=== PATIENT | female | born 1945 | race Caucasian/White ===

== ENCOUNTER 2022-08-21 10:23 | Emergency (ER) | payer MEDICARE, BC, SELFPAY ==
[2022-08-21] VITALS (16 sets, daily range): BP systolic 149–189; BP diastolic 81–102; PULSE 65–90; RESP 18; TEMP 36.5; O2SAT 87–93; BMI 23.0
--- NOTE | 2022-08-21 10:39 | ED.ABDPAIN ---
HPI - Abdominal Pain General Time Seen by Provider: 10:39 Date Seen: 08/21/22 Chief Complaint: Abdominal Pain Stated Complaint: Abdominal pain Time Seen by Provider: 08/21/22 10:39 Source: patient, RN notes reviewed and old records reviewed Mode of arrival: ambulatory Limitations: no limitations History of Present Illness HPI narrative: Patient is a 77-year-old female coming to the ER of her own accord with complaint of lower abdominal pain. She states she feels like her lower abdomen it is hard. Symptoms started on Sunday. She has had no nausea or vomiting, is having normal bowel movements. No urinary symptoms. She has never had any abdominal surgery. No fevers or chills. She does admit to decreased appetite. She points the pain in her lower abdomen but seems like it does move or radiate towards the upper abdomen. She is not having any diarrhea per report, do see she has a history of collagenous colitis in her chart. MD elicited complaint: abdominal pain Related Data Hx Last Menstrual Period: NA Home Medications Medication Instructions Recorded Confirmed levothyroxine 50 mcg tablet 50 mcg PO 04/06/22 04/10/22 Allergies Allergy/AdvReac Type Severity Reaction Status Date / Time Sulfa (Sulfonamide Allergy Severe Facial Verified 08/21/22 12:09 Antibiotics) swelling latex Allergy Verified 08/21/22 12:09 Review of Systems Status of ROS Reports: 10 or more systems reviewed and unremarkable except as noted in History and below [facility] Surgical History (Updated 04/10/22 @ 16:22 by Sahara Morgan MD) History of cataract surgery ?Z98.49 - Cataract extraction status, unspecified eye (ICD-10) Social History Smoking Status: Never smoker Do you use any of these nicotine containing products: None Second hand tobacco smoke exposure: No How often do you have a drink containing alcohol: never How often do you have six or more drinks on one occasion: Never AUDIT-C Alcohol total score: 0 Non-prescribed substance use: denies use service: No Exam Const: Vital Signs, click to edit/add: Vital Signs - 24 hr 08/21/22 10:34 Temperature 97.7 F Pulse Rate [Right Pulse Oximeter] 90 Respiratory Rate 18 Blood Pressure [Ri ght Upper Arm] 189/102 H Pulse Oximetry 92 Oxygen Delivery Me thod Room Air Documenting provider has reviewed patient's vital signs: yes Common normals: no apparent distress, oriented x3, no limitations, healthy appearing and alert General appearance: cooperative, comfortable, well kempt and well developed Nutritional appearance: thin HENMT: Common normals: normocephalic, head/scalp atraumatic, hearing grossly normal bilaterally, external nose normal, moist oral mucous membranes and oropharynx normal Head and scalp: normocephalic and atraumatic Nose: external nose normal Eye: Common normals: PERRL, EOMs intact bilaterally, conjunctivae normal and no scleral icterus Conjunctiva: conjunctiva(e) normal Pupil: PERRL Neck & C-Spine: Common normals: full ROM, no lymphadenopathy, supple and no meningeal signs Resp: Common normals: normal respiratory effort, no retractions, no use of accessory muscles and clear to auscultation bilaterally Auscultation: clear to auscultation bilaterally Cardio: Common normals: regular rate, regular rhythm, S1 normal heart sound, S2 normal heart sound, no gallops, no clicks and no murmurs Rate: regular rate Rhythm: regular rhythm Heart sounds: S1 normal and S2 normal GI: Other: Overall abdomen does not look distended but patient feels like it is. Bowel sounds are present. I do not feel any organomegaly. She is tender suprapubic area but no definitive mass. Extremity: Common normals: normal to inspection, full ROM and no pedal edema Neuro: Common normals: oriented x3 Sensorium/orientation: alert Meningeal signs: no meningeal signs Speech: speech normal Gait (neuro): normal gait Psych: Appearance: well kempt Course Course Hospital Course: Given patient's symptoms, age, do feel we need to proceed with CT imaging. We will do a full complement of labs including urinalysis. She declines any need for pain management at this time. Reevaluation(s) Reevaluation #1: Reviewed with patient her CT findings. She has mild cecal diverticulitis. We will give an initial dose of Unasyn 3 g IV. Sent in prescription for oral antibiotics. We discussed low-fiber/low residue diet initially. When she has resolve, can resume high-fiber diet. She has a follow-up with her primary care next week which should be perfect timing for ED follow-up. Time: 14:02 Vital Signs Vital signs: Initial Vital Signs Temperature 97.7 F 08/21/22 10:34 Temperature Source Temporal Artery Scan 08/21/22 10:34 Pulse Rate 90 08/21/22 10:34 Respiratory Rate 18 08/21/22 10:34 Blood Pressure 189/102 H 08/21/22 10:34 Blood Pressure Mean 131 08/21/22 10:34 Blood Pressure Position Sitting 08/21/22 10:34 Pulse Oximetry 92 08/21/22 10:34 Oxygen Delivery Method Room Air 08/21/22 10:34 Vital Signs Temperature 97.7 F 08/21/22 10:34 Pulse Rate 90 08/21/22 10:34 Respiratory Rate 18 08/21/22 10:34 Blood Pressure 189/102 H 08/21/22 10:34 Pulse Oximetry 92 08/21/22 10:34 Oxygen Delivery Method Room Air 08/21/22 10:34 Temperature 97.7 F 08/21/22 10:34 Pulse Rate 90 08/21/22 10:34 Respiratory Rate 18 08/21/22 10:34 Blood Pressure 189/102 H 08/21/22 10:34 Pulse Oximetry 92 08/21/22 10:34 Oxygen Delivery Method Room Air 08/21/22 10:34 MDM - Abdominal Pain Lab Data Attestation: I reviewed the patient's lab results. Labs: Lab Results 08/21/22 08/21/22 08/21/22 Range/Units 10:47 11:00 11:10 WBC 8.08 (4.50-11.00) K/uL RBC 4.29 (4.00-5.20) m/uL Hgb 12.2 (12.0-16.0) gm/dL Hct 37.1 (33.0-51.0) % MCV 87 (80-100) fL MCH 28 (26-34) pg MCHC 33 (32-36) gm/dL RDW Coeff of Yan 12.9 (11.5-15.5) % Plt Count 162 (140-440) K/uL Neut % (Auto) 75.0 H (42.0-72.0) % Lymph % (Auto) 15.1 L (20-44) % [place] % (Auto) 8.8 (0.0-11.0) % Eos % (Auto) 0.6 (0.0-7.0) % Baso % (Auto) 0.4 (0.0-3.0) % Neut # (Auto) 6.10 (1.7-7.0) K/uL Lymph # (Auto) 1.20 (0.90-2.90) K/uL [place] # (Auto) 0.70 (0.00-0.90) K/UL Eos # (Auto) 0.05 (0.00-0.50) K/uL Baso # (Auto) 0.03 (0.00-0.30) K/uL Sodium 136 (135-149) mmol/L Potassium 3.8 (3.6-5.1) mmol/L Chloride 102 (96-114) mmol/L Carbon Dioxide 27 (20-32) mmol/L BUN 12 (7-30) mg/dL Creatinine 0.8 (0.5-1.5) mg/dL Estimated Creat Clear 38.35 Estimated GFR 75 ml/min Glucose 94 (60-115) mg/dL Lactate 0.8 (0.5-1.9) mmol/L Calcium 9.0 (8.4-10.6) mg/dL Total Bilirubin 0.8 (0.1-1.5) mg/dL Direct Bilirubin 0.2 (0.0-0.5) mg/dL AST 30 (12-35) U/L ALT 23 (4-35) U/L Alkaline Phosphatase 85 (40-150) U/L C-Reactive Protein 3.2 H (0.5-1.0) mg/dL Total Protein 8.0 (6.0-8.3) g/dL Albumin 4.3 (3.3-5.0) g/dL Lipase 220 (23-300) U/L Urine Color Yellow (Yellow) Urine Appearance Clear (Clear) Urine pH 6.0 (5.0-8.5) Ur Specific [place] <= 1.005 (1.000-1.030) Urine Protein Negative (Negative) Urine Glucose (UA) Negative (Negative) Urine Ketones Negative (Negative) Urine Blood Trace-intact A (Negative) Urine Nitrite Negative (Negative) Urine Bilirubin Negative (Negative) Urine Urobilinogen 0.2 (0.2-1.0) Ur Leukocyte Esterase 1+ A (Negative) Urine RBC 0-2 (0-2) Urine WBC 0-2 (0-5) Ur Squamous Epith Cells None (None-Few) Urine Bacteria None (None) POC Creatinine 0.9 (0.6-1.3) mg/dl Imaging Data CT scan - abdomen: Attestation: I have reviewed the pertinent imaging results. Radiologist's impression: Patient: CHELE LAGOS Facility:?[facility] Patient ID:?[id number] Site Patient ID:?[id number]. Site :?[id number] Study:?CT Abdomen/Pelvis 64CC ISOVUE 370-08/21/2022 12:11:56 PM Ordering Physician:Valerie Christopher Final Report: INDICATION: Abdominal pain and bloating. Decreased appetite 64. TECHNIQUE: CT abdomen and pelvis acquired with 100 cc Isovue 370 IV contrast. COMPARISON: None. FINDINGS: Lower chest: Unremarkable. Liver: Unremarkable. Normal in size and attenuation. No suspicious masses. Gallbladder and bile ducts: Unremarkable. No stones or inflammation. No biliary dilatation. Pancreas: Unremarkable. No mass or inflammation. Spleen: Unremarkable. Normal in size. No masses. Adrenal glands: Unremarkable. No nodules. Kidneys: Unremarkable. No suspicious masses, stones, or hydronephrosis. GI tract: Mild inflammation of a broad diverticulum in the cecum visualized on series 2, image 76. Remainder of the GI tract is unremarkable. Normal appendix. Vasculature: Abdominal aorta is normal in caliber. Mesenteric arteries are patent. Lymph nodes: No lymphadenopathy. Peritoneum/Abdominal Wall: Unremarkable. No sign of mass or infiltration. No free air or significant free fluid. Pelvis: Small calcified uterine fibroids. No other significant findings. Bones: Unremarkable for age. IMPRESSION: 1. Mild acute diverticulitis involving the diverticulum in the cecum. 2. No other acute or specific finding to explain abdominal pain. 3. No other significant findings. Please note that all CT scans at this facility use dose modulation, iterative reconstruction, and/or weight-based dosing when appropriate to reduce radiation dose to as low as reasonably achievable. Dictated by Christiano Maradiaga MD @ 08/21/2022 1:27:48 PM (Electronic Signature) Critical Care Time Critical Care Time Critical Care Time: No Discharge Plan Discharge Clinical Impression: Cecal diverticulitis Patient Disposition: Home, Self-Care Condition: Stable Instructions: Diverticulitis (ED), Diverticulitis Diet (ED) Additional Instructions: Start oral antibiotic tonight and take as prescribed. Need to drink adequate fluids, can follow handout for recommendations for solid foods through this episode. Keep your scheduled clinic follow-up next week. In the meantime, should you develop increasing abdominal pain, have development of fever or vomiting with this, do need to return to the ER for further evaluation. Can talk to primary care provider next week about making sure colonoscopy is up-to-date and that a new 1 is not recommended or needed. Activity Level: Activity as Tolerated Prescriptions: No Action levothyroxine 50 mcg tablet 50 mcg PO Patient Comments: TAKE ONE TABLET BY MOUTH ONE TIME DAILY Follow Up/Referrals: Sahara Morgan MD [Primary Care Provider] - Stand Alone Forms: [employer] Info Instructions
--- NOTE | 2022-08-21 10:46 | CRLHL7_ITS ---
For Patients: As a result of the Century Cures Act, medical imaging exams and procedure reports are released immediately into your electronic medical record. You may view this report before your referring provider. If you have questions, please contact your health care provider. INDICATION: Abdominal pain and bloating. Decreased appetite 64. TECHNIQUE: CT abdomen and pelvis acquired with 100 cc Isovue 370 IV contrast. COMPARISON: None. FINDINGS: Lower chest: Unremarkable. Liver: Unremarkable. Normal in size and attenuation. No suspicious masses. Gallbladder and bile ducts: Unremarkable. No stones or inflammation. No biliary dilatation. Pancreas: Unremarkable. No mass or inflammation. Spleen: Unremarkable. Normal in size. No masses. Adrenal glands: Unremarkable. No nodules. Kidneys: Unremarkable. No suspicious masses, stones, or hydronephrosis. GI tract: Mild inflammation of a broad diverticulum in the cecum visualized on series 2, image 76. Remainder of the GI tract is unremarkable. Normal appendix. Vasculature: Abdominal aorta is normal in caliber. Mesenteric arteries are patent. Lymph nodes: No lymphadenopathy. Peritoneum/Abdominal Wall: Unremarkable. No sign of mass or infiltration. No free air or significant free fluid. Pelvis: Small calcified uterine fibroids. No other significant findings. Bones: Unremarkable for age. IMPRESSION: 1. Mild acute diverticulitis involving the diverticulum in the cecum. 2. No other acute or specific finding to explain abdominal pain. 3. No other significant findings. Please note that all CT scans at this facility use dose modulation, iterative reconstruction, and/or weight-based dosing when appropriate to reduce radiation dose to as low as reasonably achievable. Dictated by Christiano Maradiaga MD @ 08/21/2022 1:27:48 PM (Electronically Signed)
[2022-08-21 11:08] LABS: Lactate* 0.8 mmol/L (0.5-1.9)
[2022-08-21 11:13] LABS: Basophils Absolute Auto 0.03 K/uL (0.00-0.30); Basophils Percent Auto 0.4 % (0.0-3.0); Eosinophils Absolute Auto 0.05 K/uL (0.00-0.50); Eosinophils Percent Auto 0.6 % (0.0-7.0); Hematocrit 37.1 % (33.0-51.0); Hemoglobin* 12.2 gm/dL (12.0-16.0); Immature Granulocytes Abs Auto 0.01 K/uL (0.00-0.30); Immature Granulocytes Pct Auto 0.1 %; Lymphocytes Percent Auto 15.1 % (20-44); Mean Corpuscular HGB Conc 33 gm/dL (32-36); Mean Corpuscular Hemoglobin 28 pg (26-34); Mean Corpuscular Volume 87 fL (80-100); Monocytes Percent Auto 8.8 % (0.0-11.0); Platelet Count* 162 K/uL (140-440); RDW Coefficient of Variation % 12.9 % (11.5-15.5); Red Blood Count 4.29 m/uL (4.00-5.20); White Blood Count* 8.08 K/uL (4.50-11.00)
[2022-08-21 11:17] LABS: Slide Review Reflex No
[2022-08-21 11:23] LABS: Appearance Urine Clear (Clear); Bilirubin Urine Negative (Negative); Blood Urine Trace-intact (Negative); Color Urine Yellow (Yellow); Glucose Urine Negative (Negative); Ketones Urine Negative (Negative); Leukocyte Esterase Urine 1+ (Negative); Nitrite Urine Negative (Negative); Protein Urine Negative (Negative); Specific Gravity Urine <= 1.005 (1.000-1.030); Urobilinogen Urine 0.2 (0.2-1.0)
[2022-08-21 11:24] LABS: Creatinine, Point-of-Care* 0.9 mg/dl (0.6-1.3)
[2022-08-21 11:34] LABS: Chloride* 102 mmol/L (96-114)
[2022-08-21 11:35] LABS: Albumin* 4.3 g/dL (3.3-5.0); Potassium* 3.8 mmol/L (3.6-5.1); Sodium* 136 mmol/L (135-149)
[2022-08-21 11:37] LABS: Creatinine* 0.8 mg/dL (0.5-1.5); Est. Creatinine Clearance* 38.35; Estimated Glomerular Filt Rate 75 ml/min
[2022-08-21 11:38] LABS: Alanine Aminotransferase* 23 U/L (4-35); Alkaline Phosphatase* 85 U/L (40-150); Aspartate Amino Transferase* 30 U/L (12-35); Bilirubin Direct* 0.2 mg/dL (0.0-0.5); Bilirubin Total* 0.8 mg/dL (0.1-1.5); Blood Urea Nitrogen* 12 mg/dL (7-30); Carbon Dioxide* 27 mmol/L (20-32); Glucose* 94 mg/dL (60-115); Lipase* 220 U/L (23-300)
[2022-08-21 11:45] LABS: RBC Urine 0-2 (0-2); WBC Urine 0-2 (0-5)
[2022-08-21 11:45] LABS: C Reactive Protein* 3.2 mg/dL (0.5-1.0)
[2022-08-21] MEDS: AMPICILLIN/SULBACTAM 3 GM in 0.9 % SODIUM CHLORIDE Mini-bag 100 ML IVPB (14:09)
== END 2022-08-21 14:47 | disposition home or self-care (01) ==
PROVIDERS: Emergency Provider Family Medicine; PCP Internal Medicine
DX: K57.32 Diverticulitis of large intestine without perforation or abscess without bleeding (principal)
CPT/HCPCS: 36415; 74177; 80053; 81001; 82248; 82565; 83605; 83690; 85025; 86140; 96365; 99284; J0295; Q9967

== ENCOUNTER 2022-08-28 07:35 | Outpatient (CLI) | payer MEDICARE, BC, SELFPAY | END 2022-08-28 07:36 | disposition home or self-care (01) | LOC: NFLDREF 22:11 | PROVIDERS: PCP Internal Medicine; Referring Provider Internal Medicine; Visit Provider Internal Medicine | DX: E03.9 Hypothyroidism, unspecified (principal) | CPT/HCPCS: 84443 ==

== ENCOUNTER 2022-11-03 15:18 | Observation (INO) | payer MEDICARE, BC, SELFPAY ==
[2022-11-03] VITALS (14 sets, daily range): BP systolic 141–196; BP diastolic 78–107; PULSE 66–75; RESP 18–24; TEMP 36.9; O2SAT 91–99; BMI 23.0; BMI 24.0
--- NOTE | 2022-11-03 15:51 | ED.GENADULT ---
HPI - General Adult General Time Seen by Provider: 15:51 Date Seen: 11/03/22 Chief complaint: High Blood Pressure Stated complaint: Dizzy Heart doesn't feel right Time Seen by Provider: 11/03/22 15:41 Source: patient and RN notes reviewed Mode of arrival: ambulatory Limitations: no limitations History of Present Illness HPI narrative: Talia is a very pleasant 77-year-old female coming in not feeling right. She notes her blood pressure is quite high, states usually runs 130s. She denies any headache, denies any vertigo symptoms but does feel imbalance. She states she had vertigo before in the past and it is not spinning like that but she feels imbalanced. She feels like she has to be careful walking now. This started today maybe 9-10 a.m.. She denies any visual changes, double vision or blurry vision. No headache. She did get her shingles shot at the pharmacy 2 days ago, had chills for couple days with that. She has felt off since that. She has not noticed any focal motor weakness. Denies any speech problems, no numbness tingling. She states she knows how to check for stroke symptoms and she has not had any of those. She wonders if it could be her heart. She has seen me the last 2 times she has been in the ER, I believe this makes her feel more anxious as she states she never comes to the ER. I try to reassure her that I really do feel that she should be here for evaluation, she was in for laceration and a cecal diverticulitis which are certainly things we would anticipate her to come to the ER for. The cecal diverticulitis was in August. She denies any abdominal symptoms at this time. No respiratory symptoms. She wonders maybe if she is coming down with COVID. I did state that we could test her for this. Related Data Home Medications Medication Instructions Recorded Confirmed multivitamin (Daily Multi-Vitamin 1 tab PO QAM 08/31/22 10/10/22 tablet) acetaminophen 500 mg capsule 500 mg PO Q6H PRN 10/10/22 10/10/22 ascorbic acid (vitamin C) 500 mg 500 mg PO DAILY PRN 10/10/22 10/10/22 tablet cholecalciferol (vitamin D3) 25 25 mcg PO QDAY PRN 10/10/22 10/10/22 mcg (1,000 unit) capsule ibuprofen 200 mg capsule 200 mg PO Q6H PRN 10/10/22 10/10/22 Previous Rx's Medication Instructions Recorded levothyroxine 50 mcg tablet 50 mcg PO QDAY #90 tabs 09/04/22 Allergies Allergy/AdvReac Type Severity Reaction Status Date / Time Sulfa (Sulfonamide Allergy Severe Facial Verified 11/03/22 15:28 Antibiotics) swelling latex Allergy Verified 11/03/22 15:28 Review of Systems Status of ROS: Reports: 6 or more systems reviewed and unremarkable except as noted in History and below [facility] Medical History (Updated 11/03/22 @ 18:51 by Kandace Robin MD) Family history of colon cancer ?Z80.0 - Family history of malignant neoplasm of digestive organs (ICD-10) Collagenous colitis ?K52.831 - Collagenous colitis (ICD-10) Hypothyroidism ?E03.9 - Hypothyroidism, unspecified (ICD-10) History of diverticulitis ?Z87.19 - Personal history of other diseases of the digestive system (ICD-10) Surgical History History of cataract surgery ?Z98.49 - Cataract extraction status, unspecified eye (ICD-10) Family History (Updated 11/03/22 @ 18:51 by Kandace Robin MD) Sister Colon cancer Mother Pancreatic cancer Social History Narrative: Health care directive on file- Health Care Directive completed on 09/04/2016. Scanned on 09/07/2016. Reviewed on 12/18/2019. What is your current living situation?: I presently have a place to live Problems where you live: no known problems Problems where you live details: none In the past 12 months, utilities in danger of being shut off: no In the past 12 mos, have been you worried that your food would run out before you had money to buy more?: never true In the past 12 mos, the food you bought just didn't last and you didn't have money to buy more?: never true Highest level of school completed/degree received: Master's degree Smoking Status: Never smoker Do you use any of these nicotine containing products: None Second hand tobacco smoke exposure: No How often do you have a drink containing alcohol: never How often do you have six or more drinks on one occasion: Never AUDIT-C Alcohol total score: 0 Non-prescribed substance use: denies use Caffeine: Yes (1 cup a day) How often does anyone, including family, friends and others, physically hurt you: never How often does anyone, including family, friends and others, insult or talk down to you: never How often does anyone, including family, friends and others, threaten you with harm: never How often does anyone, including family, friends and others, scream or curse at you: never Little interest or pleasure in doing things: not at all Feeling down, depressed, or hopeless: not at all service: No Exam Const: Vital Signs, click to edit/add: Vital Signs - 24 hr 11/03/22 15:25 11/03/22 15:52 11/03/22 15:53 Temperature 98.5 F Pulse Rate 69 66 Pulse Rate [Right Pulse Oximeter] 73 Respiratory Rate 18 Blood Pressure 179/92 H Blood Pressure [Ri ght Upper Arm] 196/92 H Pulse Oximetry 99 97 96 Oxygen Delivery Me thod Room Air 11/03/22 16:00 11/03/22 16:02 11/03/22 16:03 Temperature Pulse Rate 73 75 74 Pulse Rate [Right Pulse Oximeter] Respiratory Rate Blood Pressure 185/107 H Blood Pressure [Ri ght Upper Arm] Pulse Oximetry 97 97 97 Oxygen Delivery Me thod 11/03/22 16:30 11/03/22 16:31 11/03/22 16:32 Temperature Pulse Rate 72 68 67 Pulse Rate [Right Pulse Oximeter] Respiratory Rate Blood Pressure 172/88 H Blood Pressure [Ri ght Upper Arm] Pulse Oximetry 93 96 93 Oxygen Delivery Me thod 11/03/22 17:30 11/03/22 17:31 Temperature Pulse Rate 71 67 Pulse Rate [Right Pulse Oximeter] Respiratory Rate Blood Pressure 180/78 H Blood Pressure [Ri ght Upper Arm] Pulse Oximetry 91 92 Oxygen Delivery Me thod Documenting provider has reviewed patient's vital signs: yes Common normals: no apparent distress, average body habitus, oriented x3, no limitations, healthy appearing, alert and well nourished General appearance: cooperative, comfortable, well kempt, well developed and anxious HENMT: Common normals: normocephalic, head/scalp atraumatic, hearing grossly normal bilaterally, external ears normal, external nose normal, nasal mucous membranes and turbinates normal, moist oral mucous membranes, oropharynx normal, dentition normal and gingiva normal Head and scalp: normocephalic and atraumatic Face and sinus: normal facial exam Nose: external nose normal and nasal mucous membranes and turbinates normal External ear: external ears normal Eye: Common normals: PERRL, EOMs intact bilaterally, conjunctivae normal and no scleral icterus Conjunctiva: conjunctiva(e) normal Pupil: PERRL Neck & C-Spine: Common normals: full ROM, no lymphadenopathy, supple, no meningeal signs, no JVD and thyroid normal Thyroid: thyroid normal Resp: Common normals: normal respiratory effort, no retractions, no use of accessory muscles and clear to auscultation bilaterally Effort & inspection: able to speak in complete sentences Auscultation: clear to auscultation bilaterally Other: Sits up easily on her own to the edge of the bed without any difficulty, no truncal sway noted. Cardio: Common normals: no JVD, regular rate, regular rhythm, S1 normal heart sound, S2 normal heart sound, no gallops, no clicks and no murmurs Rate: regular rate Rhythm: regular rhythm Heart sounds: S1 normal and S2 normal GI: Common normals: Normal to inspection, nondistended, normoactive bowel sounds present, soft to palpation, non-tender, no hepatosplenomegaly and no masses Palpation: soft and no hepatosplenomegaly Extremity: Common normals: no calf tenderness and no pedal edema Neuro: [place] Coma Scale: document GCS findings [place] coma scale eye opening: Spontaneous (4) Maura coma scale verbal response: Orientated (5) [place] coma scale motor response: Obey commands (6) [place] coma scale total score: 15 Common normals: oriented x3, CN's II-XII intact bilaterally, moves all extremities, no focal motor deficits and no sensory deficits noted Sensorium/orientation: alert Meningeal signs: no meningeal signs Speech: speech normal Motor exam: strength 5/5 throughout, no pronator drift, no tremor noted, no asterixis, no fasciculations and muscle tone normal throughout Psych: Appearance: well kempt Skin: Common normals: no rashes or lesions noted General skin exam: no rashes or lesions noted Course Course Hospital Course: Patient is quite hypertensive, complaint sense of gait instability or unsteadiness, not true vertigo or dizziness. This certainly could be small vascular disease distribution type CVA. Have discussed with patient that I think we should just proceed with an MRI of her head. Of plain noncontrast head CT is not likely to show anything. Will have her on cardiac monitoring and pulse oximetry. Did review with her that we would look at her heart for arrhythmia, ischemic disease. Will do a full complement of labs. Reevaluation(s) Time of Reevaluation #1: 17:36 Reevaluation #1: Have reviewed with patient the hyponatremia. We are still waiting her MRI result of her brain. We will be getting a two view chest x-ray just to see if there is anything within the chest that might cause the hyponatremia. Have discussed with her that she needs hospitalization. Have already reviewed the case with the hospitalist Dr. Robin who accepts care. She will be getting low-dose IV fluid normal saline 75 mils per hour. Vital Signs Vital signs: Initial Vital Signs Temperature 98.5 F 11/03/22 15:25 Temperature Source Oral 11/03/22 15:25 Pulse Rate 73 11/03/22 15:25 Pulse Rhythm Regular 11/03/22 15:25 Pulse Strength 3+ Normal 11/03/22 15:25 Respiratory Rate 18 11/03/22 15:25 Blood Pressure 196/92 H 11/03/22 15:25 Blood Pressure Mean 126 H 11/03/22 15:25 Blood Pressure Position Sitting 11/03/22 15:25 Pulse Oximetry 99 11/03/22 15:25 Oxygen Delivery Method Room Air 11/03/22 15:25 Vital Signs Temperature 98.5 F 11/03/22 15:25 Pulse Rate 73 11/03/22 15:25 Respiratory Rate 18 11/03/22 15:25 Blood Pressure 196/92 H 11/03/22 15:25 Pulse Oximetry 99 11/03/22 15:25 Oxygen Delivery Method Room Air 11/03/22 15:25 Temperature 98.5 F 11/03/22 15:25 Pulse Rate 74 11/03/22 18:44 Respiratory Rate 22 11/03/22 18:44 Blood Pressure 168/92 H 11/03/22 18:44 Pulse Oximetry 93 11/03/22 18:44 Oxygen Delivery Method Room Air 11/03/22 18:44 Medical Decision Making Lab Data Lab results reviewed: Yes I reviewed the patient's lab results Labs: Lab Results 11/03/22 Range/Units 16:15 WBC 7.94 (4.50-11.00) K/uL RBC 3.99 L (4.00-5.20) m/uL Hgb 11.1 L (12.0-16.0) gm/dL Hct 33.9 (33.0-51.0) % MCV 85 (80-100) fL MCH 28 (26-34) pg MCHC 33 (32-36) gm/dL RDW Coeff of Yan 12.8 (11.5-15.5) % Plt Count 183 (140-440) K/uL Neut % (Auto) 77.1 H (42.0-72.0) % Lymph % (Auto) 14.9 L (20-44) % [place] % (Auto) 7.1 (0.0-11.0) % Eos % (Auto) 0.4 (0.0-7.0) % Baso % (Auto) 0.4 (0.0-3.0) % Neut # (Auto) 6.10 (1.7-7.0) K/uL Lymph # (Auto) 1.20 (0.90-2.90) K/uL [place] # (Auto) 0.60 (0.00-0.90) K/UL Eos # (Auto) 0.03 (0.00-0.50) K/uL Baso # (Auto) 0.03 (0.00-0.30) K/uL Sodium 124 L* (135-149) mmol/L Potassium 4.0 (3.6-5.1) mmol/L Chloride 89 L (96-114) mmol/L Carbon Dioxide 23 (20-32) mmol/L BUN 17 (7-30) mg/dL Creatinine 0.8 (0.5-1.5) mg/dL Estimated Creat Clear 38.35 Estimated GFR 75 ml/min Glucose 105 (60-115) mg/dL Calcium 9.0 (8.4-10.6) mg/dL Magnesium 1.7 (1.5-2.6) mg/dL Total Bilirubin 0.6 (0.1-1.5) mg/dL AST 39 H (12-35) U/L ALT 27 (4-35) U/L Alkaline Phosphatase 78 (40-150) U/L C-Reactive Protein 0.6 (0.5-1.0) mg/dL NT-Pro-B Natriuret Pep 110 pg/mL Total Protein 7.5 (6.0-8.3) g/dL Albumin 2.3 L (3.3-5.0) g/dL TSH 0.823 (0.270-4.20) uIU/mL SARS-CoV-2 (PCR) Negative SARS-CoV-2 (Negative) POC Troponin I 0.01 (0.01-0.04) ng/ml Imaging Data MR Brain: Attestation: I have reviewed the pertinent imaging results. Radiologist's impression: Patient: TALIA LAGOS Facility:?[facility] Patient ID:?[id number] Site Patient ID:?[id number]. Site :?[id number] Study:?MRI Head W/O-11/03/2022 5:44:53 PM Ordering Physician:Valerie Christopher Final Report: Indication: Imbalance, hypertensive Technique: Multiplanar, multisequence MRI of the brain obtained without contrast. Comparison: CT head 02/05/2015 Findings: The ventricles and cortical sulci are mildly prominent. No hydrocephalus or herniation. No acute/subacute ischemia, intracranial hemorrhage or abnormal extra-axial fluid collection. Scattered punctate foci of FLAIR hyperintensity are noted throughout the supratentorial white matter. No suspicious susceptibility. Midline structures are unremarkable. Major expected intracranial flow voids are visualized. Bone marrow signal is unremarkable. No suspicious findings in the regional soft tissues. Go to the ending of the mild maxillary sinus mucosal thickening without air-fluid level. No large mastoid effusion. Bilateral lens implants. Impression: 1. No evidence of acute intracranial abnormality. 2. Mild generalized cerebral volume loss, and mild chronic microangiopathic changes. Dictated by Taylor Reyes MD @ 11/03/2022 6:04:14 PM (Electronic Signature) Chest x-ray: Attestation: I have reviewed the pertinent imaging results. Radiologist's impression: Patient: TALIA LAGOS Facility:?[facility] Patient ID:?[id number] Site Patient ID:?[id number]. Site :?[id number] Study:?XRay Chest 2V-11/03/2022 5:55:52 PM Ordering Physician:Valerie Christopher Final Report: INDICATION: Hyponatremia, heart sensation. TECHNIQUE: Chest 2 views. COMPARISON: None. FINDINGS: No focal consolidation, pleural effusion, or pneumothorax. Pulmonary hyperinflation. Normal heart size and pulmonary vascularity. The bones are unremarkable. IMPRESSION: No acute cardiopulmonary findings. Dictated by Key Kaur MD @ 11/03/2022 6:54:26 PM (Electronic Signature) ECG Data Attestation: I personally reviewed and interpreted this ECG as follows: (Normal sinus rhythm with sinus arrhythmia, 70 beats per minute. Poor R-wave progression the anterior precordial leads without any ST or T-wave segment changes. QT corrected 410 milliseconds.) Prior ECG tracings: not available for review Critical Care Time Critical Care Time Critical Care Time: No Discharge Plan Discharge Clinical Impression: Elevated blood pressure reading, Acute hyponatremia Patient Disposition: Admitted As Observation
--- NOTE | 2022-11-03 16:04 | CRLHL7_ITS ---
For Patients: As a result of the Century Cures Act, medical imaging exams and procedure reports are released immediately into your electronic medical record. You may view this report before your referring provider. If you have questions, please contact your health care provider. Indication: Imbalance, hypertensive Technique: Multiplanar, multisequence MRI of the brain obtained without contrast. Comparison: CT head 02/05/2015 Findings: The ventricles and cortical sulci are mildly prominent. No hydrocephalus or herniation. No acute/subacute ischemia, intracranial hemorrhage or abnormal extra-axial fluid collection. Scattered punctate foci of FLAIR hyperintensity are noted throughout the supratentorial white matter. No suspicious susceptibility. Midline structures are unremarkable. Major expected intracranial flow voids are visualized. Bone marrow signal is unremarkable. No suspicious findings in the regional soft tissues. Go to the ending of the mild maxillary sinus mucosal thickening without air-fluid level. No large mastoid effusion. Bilateral lens implants. Impression: 1. No evidence of acute intracranial abnormality. 2. Mild generalized cerebral volume loss, and mild chronic microangiopathic changes. Dictated by Taylor Reyes MD @ 11/03/2022 6:04:14 PM (Electronically Signed)
[2022-11-03 16:29] LABS: Basophils Absolute Auto 0.03 K/uL (0.00-0.30); Basophils Percent Auto 0.4 % (0.0-3.0); Eosinophils Absolute Auto 0.03 K/uL (0.00-0.50); Eosinophils Percent Auto 0.4 % (0.0-7.0); Hematocrit 33.9 % (33.0-51.0); Hemoglobin* 11.1 gm/dL (12.0-16.0); Immature Granulocytes Abs Auto 0.01 K/uL (0.00-0.30); Immature Granulocytes Pct Auto 0.1 %; Lymphocytes Percent Auto 14.9 % (20-44); Mean Corpuscular HGB Conc 33 gm/dL (32-36); Mean Corpuscular Hemoglobin 28 pg (26-34); Mean Corpuscular Volume 85 fL (80-100); Monocytes Percent Auto 7.1 % (0.0-11.0); Neutrophils Percent Auto 77.1 % (42.0-72.0); Platelet Count* 183 K/uL (140-440); RDW Coefficient of Variation % 12.8 % (11.5-15.5); Red Blood Count 3.99 m/uL (4.00-5.20); White Blood Count* 7.94 K/uL (4.50-11.00)
[2022-11-03 16:32] LABS: Troponin, Point-of-Care* 0.01 ng/ml (0.01-0.04)
[2022-11-03 16:40] LABS: Slide Review Reflex No
[2022-11-03 16:44] LABS: Albumin* 2.3 g/dL (3.3-5.0); Chloride* 89 mmol/L (96-114)
[2022-11-03 16:46] LABS: Creatinine* 0.8 mg/dL (0.5-1.5); Est. Creatinine Clearance* 38.35; Estimated Glomerular Filt Rate 75 ml/min
[2022-11-03 16:47] LABS: Alanine Aminotransferase* 27 U/L (4-35); Alkaline Phosphatase* 78 U/L (40-150); Aspartate Amino Transferase* 39 U/L (12-35); Bilirubin Total* 0.6 mg/dL (0.1-1.5); Blood Urea Nitrogen* 17 mg/dL (7-30); Carbon Dioxide* 23 mmol/L (20-32); Glucose* 105 mg/dL (60-115); Total Protein* 7.5 g/dL (6.0-8.3)
[2022-11-03 16:48] LABS: Magnesium* 1.7 mg/dL (1.5-2.6)
[2022-11-03 16:50] LABS: C Reactive Protein* 0.6 mg/dL (0.5-1.0)
[2022-11-03 16:58] LABS: NT Pro B Type NatriureticPept* 110 pg/mL; Sodium* 124 mmol/L (135-149)
[2022-11-03 17:15] LABS: SARS PCR* Negative SARS-CoV-2 (Negative)
--- NOTE | 2022-11-03 17:29 | CRLHL7_ITS ---
For Patients: As a result of the Century Cures Act, medical imaging exams and procedure reports are released immediately into your electronic medical record. You may view this report before your referring provider. If you have questions, please contact your health care provider. INDICATION: Hyponatremia, heart sensation. TECHNIQUE: Chest 2 views. COMPARISON: None. FINDINGS: No focal consolidation, pleural effusion, or pneumothorax. Pulmonary hyperinflation. Normal heart size and pulmonary vascularity. The bones are unremarkable. IMPRESSION: No acute cardiopulmonary findings. Dictated by Key Kaur MD @ 11/03/2022 6:54:26 PM (Electronically Signed)
[2022-11-03] MEDS: 0.9 % SODIUM CHLORIDE 1000 ml 1,000 ML 75 ML IV (17:44)
--- NOTE | 2022-11-03 18:20 | ED.NURSE ---
report given to Ashely HARPER, pt will transfer to room 277 via wheelchair with belongings. per dr. felipe, pt can be transferred without heart monitor.
--- NOTE | 2022-11-03 18:50 | P.IMHP_ITS ---
Hospitalist- H&P: HPI History of Present Illness Date Seen: 11/03/22 Chief complaint: Dizzy Narrative: Talia Dennison is a 77 year old female who presented to the emergency room earlier today for feeling poorly. She felt off balance starting around 9am this morning, no headache or true vertigo. No nausea or vomiting/diarrhea. No fevers. No coughing, no chest pain, palpitations, or breathing difficulties. No focal neurologic deficits. She also notes that her BP is elevated. On review, it has been elevated in the clinic setting for the past few months, so she has been checking it at home and it has typically been in the 130s systolic. She notes that she had her Shingrix vaccine 3 days ago, has felt poorly since then. Not eating well, pushing fluids. Has also noted intermittent chills since that injection. ER course and findings: - negative COVID - negative brain MRI for acute findings - negative CXR for acute findings - hemoglobin 11.5 (12.2 in August) - Sodium 124 (136 in August) Past medical history updated below. PCP is Dr. Morgan. Review of Systems Status of ROS: Reports: 10 or more systems reviewed and unremarkable except as noted in History and below Narrative: - no skin concerns - no GI or symptoms. Last colonoscopy was 07/[address] Lawson at [facility] - no chest pain or dyspnea [facility] Medical History (Updated 11/03/22 @ 21:31 by Kandace Robin MD) Health care directive on file ?Z78.9 - Other specified health status (ICD-10) Chronic low back pain ?M54.50 - Low back pain, unspecified (ICD-10) ?G89.29 - Other chronic pain (ICD-10) Family history of colon cancer ?Z80.0 - Family history of malignant neoplasm of digestive organs (ICD-10) Collagenous colitis ?K52.831 - Collagenous colitis (ICD-10) Hypothyroidism ?E03.9 - Hypothyroidism, unspecified (ICD-10) History of diverticulitis ?Z87.19 - Personal history of other diseases of the digestive system (ICD-10) Surgical History History of cataract surgery ?Z98.49 - Cataract extraction status, unspecified eye (ICD-10) Family History (Updated 11/03/22 @ 18:51 by Kandace Robin MD) Sister Colon cancer Mother Pancreatic cancer Social History (Updated 11/03/22 @ 21:15 by Kandace Robin MD) Narrative: Talia is a , has two adult sons (Ravin is in [place] and would be MDM if needed). She is a retired teacher. Nonsmoker, no ETOH. Requests DNR/DNI status. Health care directive on file- Health Care Directive completed on 09/04/2016. Scanned on 09/07/2016. Reviewed on 12/18/2019. What is your current living situation?: I presently have a place to live Problems where you live: no known problems Problems where you live details: none In the past 12 months, utilities in danger of being shut off: no In the past 12 mos, have been you worried that your food would run out before you had money to buy more?: never true In the past 12 mos, the food you bought just didn't last and you didn't have money to buy more?: never true Highest level of school completed/degree received: Master's degree Smoking Status: Never smoker Do you use any of these nicotine containing products: None Second hand tobacco smoke exposure: No How often do you have a drink containing alcohol: never How often do you have six or more drinks on one occasion: Never AUDIT-C Alcohol total score: 0 Non-prescribed substance use: denies use Caffeine: Yes (1 cup a day) How often does anyone, including family, friends and others, physically hurt you : never How often does anyone, including family, friends and others, insult or talk down to you: never How often does anyone, including family, friends and others, threaten you with harm: never How often does anyone, including family, friends and others, scream or curse at you: never Little interest or pleasure in doing things: not at all Feeling down, depressed, or hopeless: not at all service: No Meds Home Medications and Allergies Home Medications Medication Instructions Recorded Confirmed Type multivitamin (Daily Multi-Vitamin 1 tab PO QAM 08/31/22 11/03/22 History tablet) acetaminophen 500 mg capsule 500 mg PO Q6H PRN 10/10/22 11/03/22 History ascorbic acid (vitamin C) 500 mg 500 mg PO DAILY PRN 10/10/22 11/03/22 History tablet cholecalciferol (vitamin D3) 25 25 mcg PO QDAY PRN 10/10/22 11/03/22 History mcg (1,000 unit) capsule ibuprofen 200 mg capsule 200 mg PO Q6H PRN 10/10/22 11/03/22 History Home Medication Comments: Also on 50mcg on Levothyroxine (only daily Rx medication) Allergies Allergy/AdvReac Type Severity Reaction Status Date / Time Sulfa (Sulfonamide Allergy Severe Facial Verified 11/03/22 15:28 Antibiotics) swelling latex Allergy Verified 11/03/22 15:28 Exam Narrative: Exam Narrative: GEN: Alert and oriented, nontoxic in appearance, answering questions appropriately HEENT: EOMIs bilaterally, no scleral icterus CV: RRR, No concerning murmurs, no carotid bruits R: LCTA bilaterally, no wheezing, air movement adequate Ext: wwp, no concerning edema Skin: No concerning skin lesions or rashes on exposed skin Neuro: No focal deficits, no resting tremor Psych: Appropriate Const: Vital Signs, click to edit/add: Vital Signs - 24 hr 11/03/22 15:25 11/03/22 15:52 11/03/22 15:53 Temperature 98.5 F Pulse Rate 69 66 Pulse Rate [Right Pulse Oximeter] 73 Respiratory Rate 18 Blood Pressure 179/92 H Blood Pressure [Ri ght Upper Arm] 196/92 H Pulse Oximetry 99 97 96 Oxygen Delivery Me thod Room Air 11/03/22 16:00 11/03/22 16:02 11/03/22 16:03 Temperature Pulse Rate 73 75 74 Pulse Rate [Right Pulse Oximeter] Respiratory Rate Blood Pressure 185/107 H Blood Pressure [Ri ght Upper Arm] Pulse Oximetry 97 97 97 Oxygen Delivery Me thod 11/03/22 16:30 11/03/22 16:31 11/03/22 16:32 Temperature Pulse Rate 72 68 67 Pulse Rate [Right Pulse Oximeter] Respiratory Rate Blood Pressure 172/88 H Blood Pressure [Ri ght Upper Arm] Pulse Oximetry 93 96 93 Oxygen Delivery Me thod 11/03/22 17:30 11/03/22 17:31 Temperature Pulse Rate 71 67 Pulse Rate [Right Pulse Oximeter] Respiratory Rate Blood Pressure 180/78 H Blood Pressure [Ri ght Upper Arm] Pulse Oximetry 91 92 Oxygen Delivery Ar thok Hospitalist - H&P: Result Labs Labs: Short CBC 11/03/22 Range/Units 16:15 WBC 7.94 (4.50-11.00) K/uL Hgb 11.1 L (12.0-16.0) gm/dL Hct 33.9 (33.0-51.0) % Plt Count 183 (140-440) K/uL BMP 11/03/22 16:15 Sodium 124 L* Potassium 4.0 Chloride 89 L Carbon Dioxide 23 BUN 17 Creatinine 0.8 Glucose 105 Calcium 9.0 Liver Function 11/03/22 Range/Units 16:15 Total Bilirubin 0.6 (0.1-1.5) mg/dL AST 39 H (12-35) U/L ALT 27 (4-35) U/L Alkaline Phosphatase 78 (40-150) U/L Albumin 2.3 L (3.3-5.0) g/dL Assessment and Plan Assessment and plan (1) Acute hyponatremia: Problem comment: - likely source of symptoms, presumably 2/2 increased free water intake while feeling poorly after Shingrix vaccine - normal TSH, reassuring CXR - fluid restriction, low dose NS, follow sodium levels closely - we will ask Physical therapy to see her given her off balance feeling upon presentation Status: Acute (2) Normocytic anemia: Problem comment: - new finding - no evidence of acute bleeding - UTD on colonoscopy - outpatient f/u Status: Acute (3) Elevated blood pressure reading: Problem comment: - 2/2 illness vs hospital setting vs true essential HTN - follow BP, outpatient f/u Status: Acute Plan - per above - SCDs for ppx - Likely discharge home tomorrow if sodium improves - Son updated at bedside, questions answered
--- NOTE | 2022-11-03 19:28 | PC.NURSE ---
End of Shift: Patient pleasant and cooperative, arrived to the floor about 1830. Patient hypertensive but vitally stable, lungs clear, BS WNL, IV running NS at 75. Patient denies pain. Patient has not eaten and declines food. Patient independent. Admission completed.
[2022-11-03 20:05] LABS: Thyroid Stimulating Hormone* 0.823 uIU/mL (0.270-4.20)
[2022-11-03 21:19] LABS: Sodium* 128 mmol/L (135-149)
[2022-11-04 02:23] LABS: Sodium* 134 mmol/L (135-149)
[2022-11-04 03:00] VITALS: BP 141/79; PULSE 64; RESP 20; O2SAT 93
--- NOTE | 2022-11-04 03:15 | PM.IMPN1 ---
Progress Note: A&P Assessment and plan (1) Acute hyponatremia: Problem details: - likely source of symptoms, presumably 2/2 increased free water intake while feeling poorly after Shingrix vaccine - normal TSH, reassuring CXR - fluid restriction, low dose NS, follow sodium levels closely - we will ask Physical therapy to see her given her off balance feeling upon presentation Status: Acute Plan [facility] Cross Cover Note eHospitalist was contacted by nursing staff with concern of [rapid correction of hyponatremia] [Patient is a 77-year-old woman who was admitted for acute symptomatic hyponatremia on 11/03 with a sodium level of 124.? It was felt that the hyponatremia was previously water intake while feeling poorly after getting vaccine.? She was placed on fluid restriction and low-dose normal saline infusion 50-75 mill per hour was given while following levels of sodium closely.? Over 8 hours her sodium has increased to 124 mmol/L to 134 mmol/L.? When I spoke to the nurse there was no report of any new confusion or weakness. -Sodium chloride infusion was stopped.? The patient is not getting any other sodium supplementation.? -Follow-up sodium in the morning? -Please call back for any acute change in mental status or weakness in the setting of rapid sodium correction]? Thank you for including [facility] in the patients care.? This service is available for further assistance as requested by your care team by calling [phone]. Subjective Date Seen: 11/04/22 Exam Const: Vital Signs, click to edit/add: Vital Signs - 24 hr 11/03/22 15:25 11/03/22 15:52 11/03/22 15:53 Temperature 98.5 F Pulse Rate 69 66 Pulse Rate [Pulse Oximeter] Pulse Rate [Right Pulse Oximeter] 73 Respiratory Rate 18 Blood Pressure 179/92 H Blood Pressure [Le ft Arm] Blood Pressure [Ri ght Upper Arm] 196/92 H Pulse Oximetry 99 97 96 Oxygen Delivery Me thod Room Air 11/03/22 16:00 11/03/22 16:02 11/03/22 16:03 Temperature Pulse Rate 73 75 74 Pulse Rate [Pulse Oximeter] Pulse Rate [Right Pulse Oximeter] Respiratory Rate Blood Pressure 185/107 H Blood Pressure [Le ft Arm] Blood Pressure [Ri ght Upper Arm] Pulse Oximetry 97 97 97 Oxygen Delivery Me thod 11/03/22 16:30 11/03/22 16:31 11/03/22 16:32 Temperature Pulse Rate 72 68 67 Pulse Rate [Pulse Oximeter] Pulse Rate [Right Pulse Oximeter] Respiratory Rate Blood Pressure 172/88 H Blood Pressure [Le ft Arm] Blood Pressure [Ri ght Upper Arm] Pulse Oximetry 93 96 93 Oxygen Delivery Me thod 11/03/22 17:30 11/03/22 17:31 11/03/22 18:44 Temperature Pulse Rate 71 67 Pulse Rate [Pulse Oximeter] 74 Pulse Rate [Right Pulse Oximeter] Respiratory Rate 22 Blood Pressure 180/78 H Blood Pressure [Le ft Arm] 168/92 H Blood Pressure [Ri ght Upper Arm] Pulse Oximetry 91 92 93 Oxygen Delivery Me thod Room Air 11/03/22 18:44 11/03/22 20:20 11/03/22 23:00 Temperature Pulse Rate Pulse Rate [Pulse Oximeter] 74 66 Pulse Rate [Right Pulse Oximeter] Respiratory Rate 18 24 Blood Pressure Blood Pressure [Le ft Arm] 141/78 H Blood Pressure [Ri ght Upper Arm] Pulse Oximetry 92 92 Oxygen Delivery Me thod Room Air Room Air Labs Labs: Laboratory Results - last 24 hr 11/03/22 11/03/22 11/03/22 16:15 19:16 21:00 WBC 7.94 RBC 3.99 L Hgb 11.1 L Hct 33.9 MCV 85 MCH 28 MCHC 33 RDW Coeff of Yan 12.8 Plt Count 183 Neut % (Auto) 77.1 H Lymph % (Auto) 14.9 L [place] % (Auto) 7.1 Eos % (Auto) 0.4 Baso % (Auto) 0.4 Neut # (Auto) 6.10 Lymph # (Auto) 1.20 [place] # (Auto) 0.60 Eos # (Auto) 0.03 Baso # (Auto) 0.03 Sodium 124 L* 128 L Potassium 4.0 Chloride 89 L Carbon Dioxide 23 BUN 17 Creatinine 0.8 Estimated Creat Clear 38.35 Estimated GFR 75 Glucose 105 Calcium 9.0 Magnesium 1.7 Total Bilirubin 0.6 AST 39 H ALT 27 Alkaline Phosphatase 78 C-Reactive Protein 0.6 NT-Pro-B Natriuret Pep 110 Total Protein 7.5 Albumin 2.3 L TSH 0.823 SARS-CoV-2 (PCR) Negative SARS-CoV-2 Lab Acknowledgement Test Added POC Troponin I 0.01 11/04/22 02:07 WBC RBC Hgb Hct MCV MCH MCHC RDW Coeff of Yan Plt Count Neut % (Auto) Lymph % (Auto) [place] % (Auto) Eos % (Auto) Baso % (Auto) Neut # (Auto) Lymph # (Auto) [place] # (Auto) Eos # (Auto) Baso # (Auto) Sodium 134 L Potassium Chloride Carbon Dioxide BUN Creatinine Estimated Creat Clear Estimated GFR Glucose Calcium Magnesium Total Bilirubin AST ALT Alkaline Phosphatase C-Reactive Protein NT-Pro-B Natriuret Pep Total Protein Albumin TSH SARS-CoV-2 (PCR) Lab Acknowledgement POC Troponin I
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
[2022-11-04] MEDS: LEVOTHYROXINE 50 MCG TABLET PO (06:06)
[2022-11-04 07:07] LABS: Basophils Absolute Auto 0.03 K/uL (0.00-0.30); Basophils Percent Auto 0.6 % (0.0-3.0); Eosinophils Absolute Auto 0.07 K/uL (0.00-0.50); Eosinophils Percent Auto 1.4 % (0.0-7.0); Hematocrit 34.8 % (33.0-51.0); Hemoglobin* 11.5 gm/dL (12.0-16.0); Lymphocytes Absolute Auto 1.18 K/uL (0.90-2.90); Lymphocytes Percent Auto 23.4 % (20-44); Mean Corpuscular HGB Conc 33 gm/dL (32-36); Mean Corpuscular Hemoglobin 29 pg (26-34); Mean Corpuscular Volume 86 fL (80-100); Monocytes Percent Auto 10.3 % (0.0-11.0); Neutrophils Absolute Auto 3.25 K/uL (1.7-7.0); Neutrophils Percent Auto 64.3 % (42.0-72.0); Platelet Count* 197 K/uL (140-440); RDW Coefficient of Variation % 12.9 % (11.5-15.5); Red Blood Count 4.03 m/uL (4.00-5.20); White Blood Count* 5.05 K/uL (4.50-11.00)
[2022-11-04 07:09] LABS: Slide Review Reflex No
[2022-11-04 07:18] LABS: Chloride* 101 mmol/L (96-114); Potassium* 4.4 mmol/L (3.6-5.1); Sodium* 136 mmol/L (135-149)
[2022-11-04 07:21] LABS: Blood Urea Nitrogen* 13 mg/dL (7-30); Carbon Dioxide* 28 mmol/L (20-32); Creatinine* 0.8 mg/dL (0.5-1.5); Est. Creatinine Clearance* 38.35; Estimated Glomerular Filt Rate 75 ml/min
[2022-11-04 07:22] LABS: Calcium* 9.2 mg/dL (8.4-10.6); Glucose* 94 mg/dL (60-115)
[2022-11-04 07:33] VITALS: BP 150/83; PULSE 63; RESP 18; TEMP 36.8; O2SAT 92
[2022-11-04] MEDS: SODIUM CHLORIDE 0.9 % (FLUSH) 10 ML SYRINGE 5 ML IVF ×2 (09:35→22:11)
[2022-11-04] MEDS: 5 % DEXTROSE 1000 ML 1,000 ML 100 ML IV (09:53)
--- NOTE | 2022-11-04 11:10 | PM.IMPN1 ---
Progress Note: A&P Assessment and plan (1) Acute hyponatremia: Problem details: - likely source of symptoms, presumably 2/2 increased free water intake while feeling poorly after Shingrix vaccine - normal TSH, reassuring CXR - we will ask Physical therapy to see her given her off balance feeling upon presentation Status: Acute Assessment and Plan: 11/04: Sodium over-correction 124->136 since 4pm yesterday. Will start D5W goal correction 4-6 meq over 24 hours; so around 128-130 around 4pm (2) Normocytic anemia: Problem details: - new finding - no evidence of acute bleeding - UTD on colonoscopy - outpatient f/u Status: Acute (3) Elevated blood pressure reading: Problem details: - 2/2 illness vs hospital setting vs true essential HTN - follow BP, outpatient f/u Status: Acute Plan Anticipated discharge tomorrow needs treatment of over -corrected sodium discussed with Son and patient; agreeable Subjective Date Seen: 11/04/22 Interval history: patient had over-correction of sodium from 124-136 denies headache denies nausea, vomiting tells me she drinks lots of water to help with prevention of diverticulitis Exam Narrative: Exam Narrative: Gen: no acute distress HEENT: NCAT EOMI mmm Neck: Supple CV: RRR normal s1 s2 Lungs: CTAB Abd: Soft,nt, nd Neuro: Alert, oriented, CN grossly intact; nonfocal screening?exam Psych: appropriate affect MSK: age appropriate muscle mass Skin; Warm, dry no rash on face Const: Vital Signs, click to edit/add: Vital Signs - 24 hr 11/03/22 15:25 11/03/22 15:52 11/03/22 15:53 Temperature 98.5 F Pulse Rate 69 66 Pulse Rate [Pulse Oximeter] Pulse Rate [Right Pulse Oximeter] 73 Respiratory Rate 18 Blood Pressure 179/92 H Blood Pressure [Le ft Arm] Blood Pressure [Ri ght Arm] Blood Pressure [Ri ght Upper Arm] 196/92 H Pulse Oximetry 99 97 96 Oxygen Delivery Me thod Room Air 11/03/22 16:00 11/03/22 16:02 11/03/22 16:03 Temperature Pulse Rate 73 75 74 Pulse Rate [Pulse Oximeter] Pulse Rate [Right Pulse Oximeter] Respiratory Rate Blood Pressure 185/107 H Blood Pressure [Le ft Arm] Blood Pressure [Ri ght Arm] Blood Pressure [Ri ght Upper Arm] Pulse Oximetry 97 97 97 Oxygen Delivery Me thod 11/03/22 16:30 11/03/22 16:31 11/03/22 16:32 Temperature Pulse Rate 72 68 67 Pulse Rate [Pulse Oximeter] Pulse Rate [Right Pulse Oximeter] Respiratory Rate Blood Pressure 172/88 H Blood Pressure [Le ft Arm] Blood Pressure [Ri ght Arm] Blood Pressure [Ri ght Upper Arm] Pulse Oximetry 93 96 93 Oxygen Delivery Me thod 11/03/22 17:30 11/03/22 17:31 11/03/22 18:44 Temperature Pulse Rate 71 67 Pulse Rate [Pulse Oximeter] 74 Pulse Rate [Right Pulse Oximeter] Respiratory Rate 22 Blood Pressure 180/78 H Blood Pressure [Le ft Arm] 168/92 H Blood Pressure [Ri ght Arm] Blood Pressure [Ri ght Upper Arm] Pulse Oximetry 91 92 93 [facility] 11/03/22 18:44 11/03/22 20:20 11/03/22 23:00 Temperature Pulse Rate Pulse Rate [Pulse Oximeter] 74 66 Pulse Rate [Right Pulse Oximeter] Respiratory Rate 18 24 Blood Pressure Blood Pressure [Le ft Arm] 141/78 H Blood Pressure [Ri ght Arm] Blood Pressure [Ri ght Upper Arm] Pulse Oximetry 92 92 Oxygen Delivery Me od Room Air Room Air 11/04/22 03:00 11/04/22 07:33 11/04/22 07:33 Temperature 98.2 F Pulse Rate Pulse Rate [Pulse Oximeter] 64 63 63 Pulse Rate [Right Pulse Oximeter] Respiratory Rate 20 18 18 Blood Pressure Blood Pressure [Le ft Arm] 141/79 H Blood Pressure [Ri ght Arm] 150/83 H Blood Pressure [Ri ght Upper Arm] Pulse Oximetry 93 92 Oxygen Delivery Me thod Room Air Room Air Labs Labs: Laboratory Results - last 24 hr 11/03/22 11/03/22 11/03/22 16:15 19:16 21:00 WBC 7.94 RBC 3.99 L Hgb 11.1 L Hct 33.9 MCV 85 MCH 28 MCHC 33 RDW Coeff of Yan 12.8 Plt Count 183 Neut % (Auto) 77.1 H Lymph % (Auto) 14.9 L [place] % (Auto) 7.1 Eos % (Auto) 0.4 Baso % (Auto) 0.4 Neut # (Auto) 6.10 Lymph # (Auto) 1.20 [place] # (Auto) 0.60 Eos # (Auto) 0.03 Baso # (Auto) 0.03 Sodium 124 L* 128 L Potassium 4.0 Chloride 89 L Carbon Dioxide 23 BUN 17 Creatinine 0.8 Estimated Creat Clear 38.35 Estimated GFR 75 Glucose 105 Calcium 9.0 Magnesium 1.7 Total Bilirubin 0.6 AST 39 H ALT 27 Alkaline Phosphatase 78 C-Reactive Protein 0.6 NT-Pro-B Natriuret Pep 110 Total Protein 7.5 Albumin 2.3 L TSH 0.823 SARS-CoV-2 (PCR) Negative SARS-CoV-2 Lab Acknowledgement Test Added POC Troponin I 0.01 11/04/22 11/04/22 02:07 06:40 WBC 5.05 RBC 4.03 Hgb 11.5 L Hct 34.8 MCV 86 MCH 29 MCHC 33 RDW Coeff of Yan 12.9 Plt Count 197 Neut % (Auto) 64.3 Lymph % (Auto) 23.4 [place] % (Auto) 10.3 Eos % (Auto) 1.4 Baso % (Auto) 0.6 Neut # (Auto) 3.25 Lymph # (Auto) 1.18 [place] # (Auto) 0.50 Eos # (Auto) 0.07 Baso # (Auto) 0.03 Sodium 134 L 136 Potassium 4.4 Chloride 101 Carbon Dioxide 28 BUN 13 Creatinine 0.8 Estimated Creat Clear 38.35 Estimated GFR 75 Glucose 94 Calcium 9.2 Magnesium Total Bilirubin AST ALT Alkaline Phosphatase C-Reactive Protein NT-Pro-B Natriuret Pep Total Protein Albumin TSH SARS-CoV-2 (PCR) Lab Acknowledgement POC Troponin I
[2022-11-04 12:12] VITALS: BP 130/70; PULSE 65; RESP 22; TEMP 36.8; O2SAT 92
[2022-11-04 13:30] LABS: Sodium* 137 mmol/L (135-149)
[2022-11-04 15:45] VITALS: BP 132/70; PULSE 64; RESP 22; TEMP 36.8; O2SAT 91
[2022-11-04] MEDS: 5 % DEXTROSE 1000 ML 1,000 ML 200 ML IV ×2 (17:26→22:12)
--- NOTE | 2022-11-04 18:27 | PC.NURSE ---
End of Shift: Patient pleasant and cooperative. Patient vitally stable, lungs clear, BS WNL, IV running D5 at 200. Patient denies pain, and reports feeling much better today. Patient independent. Patient tolerating regular diet and urinating, no BM. Patient was up in chair today. Patient asks many question regarding low sodium.
[2022-11-04 20:00] VITALS: BP 150/85; PULSE 73; RESP 18; TEMP 36.4; O2SAT 92
[2022-11-04 20:18] LABS: Sodium* 135 mmol/L (135-149)
[2022-11-04 22:15] VITALS: BP 150/86; PULSE 66; RESP 24; TEMP 36.9; O2SAT 93
[2022-11-05 03:00] VITALS: BP 157/89; PULSE 74; RESP 16; TEMP 36.4; O2SAT 93
[2022-11-05] MEDS: LEVOTHYROXINE 50 MCG TABLET PO (05:42)
--- NOTE | 2022-11-05 05:57 | PC.NURSE ---
END OF SHIFT NOTE: PT PLEASANT AND COOPERATIVE WITH CARES. A&Ox3. PT DENIES CP, SOB, N/V. AMBULATES INDEPENDENTLY WITHIN ROOM. VSS ON RA; AFEBRILE. PT C/O FEELING CLAMMY; NO TEMPERATURE AND LS ARE CLEAR. TURNED THERMOSTAT DOWN, RECHECKED PT IN HALF HR AND PT REPORTED ?FEELING BETTER?. PT SLEPT WELL NOC. CALL LIGHT WITHIN PT?S REACH. UNEVENTFUL SHIFT.
[2022-11-05 07:52] VITALS: BP 166/83; PULSE 69; RESP 24; TEMP 36.4; O2SAT 91
[2022-11-05 08:13] LABS: Sodium* 137 mmol/L (135-149)
[2022-11-05] MEDS: SODIUM CHLORIDE 0.9 % (FLUSH) 10 ML SYRINGE 5 ML IVF (09:07)
--- NOTE | 2022-11-05 09:59 | PM.DS1 ---
DS: Providers Provider Date Seen: 11/05/22 Date of admission: 11/03/22 18:25 Primary care physician: Sahara Morgan MD Admitting Clinician: Kandace Robin MD Consults: 11/03/22 20:35 Consult to Physical Therapy [CONS] Routine Comment: Reason(s) for PT Consult:: Evaluate and Treat Any Restrictions?:: No Restrictions Attending Physician on discharge: Kandace Robin MD Date of Discharge: 11/05/22 DS: Diagnosis Discharge Diagnosis (1) Acute hyponatremia: Status: Acute Problem details: - likely source of symptoms, presumably 2/2 increased free water intake while feeling poorly after Shingrix vaccine - normal TSH, reassuring CXR - Sodium over-corrected and thus patient had to be started on D5W. discharge Sodium 137 (2) Elevated blood pressure reading: Status: Acute Problem details: - 2/2 illness vs hospital setting vs true essential HTN - follow BP, outpatient f/u (3) Normocytic anemia: Status: Acute Problem details: - new finding - no evidence of acute bleeding - UTD on colonoscopy - outpatient f/u DS: Summary Hospital Course Hospital Course: [place] Chief complaint: Dizzy Narrative: Talia Dennison is a 77 year old female who presented to the emergency room earlier today for feeling poorly.? She felt off balance starting around 9am this morning, no headache or true vertigo. No nausea or vomiting/diarrhea. No fevers.? No coughing, no chest pain, palpitations, or breathing difficulties. No focal neurologic deficits.? She also notes that her BP is elevated. On review, it has been elevated in the clinic setting for the past few months, so she has been checking it at home and it has typically been in the 130s systolic. She notes that she had her Shingrix vaccine 3 days ago, has felt poorly since then. Not eating well, pushing fluids. Has also noted intermittent chills since that injection.? ER course and findings: ?- negative COVID ?- negative brain MRI for acute findings ?- negative CXR for acute findings ?- hemoglobin 11.5 (12.2 in August) ?- Sodium 124 (136 in August) HOSPITAL COURSE The patient was started on NS and fluid restriction. Sodium increased 124 to 136; due to overcorrection patient was started on D5W. Sodium on date of discharge was 137. Patient was back to baseline state with no dizziness, headache, confusion, able to ambulate. Son updated. Patient stated she was drinking lots of free water at home. Encouraged to limit excessive free water intake and drink electrolyte solutions during physical activity. I have asked that she follow up with PCP in 5 days for post hospital follow up, recheck sodium, monitor blood pressure and consideration for initiation of antihypertensives. MRI BRAIN Impression: 1. No evidence of acute intracranial abnormality. 2. Mild generalized cerebral volume loss, and mild chronic microangiopathic changes. Time Spent with Patient Time attestation: Total time spent providing and/or coordinating discharge services: Exam Narrative: Exam Narrative: Gen: no acute distress HEENT: NCAT EOMI mmm Neck: Supple CV: RRR normal s1 s2 Lungs: CTAB Abd: Soft,nt, nd Neuro: Alert, oriented, CN grossly intact; nonfocal screening?exam Psych: appropriate affect MSK: age appropriate muscle mass Skin; Warm, dry no rash on face Const: Vital Signs, click to edit/add: Vital Signs - 24 hr 11/04/22 12:12 11/04/22 15:45 11/04/22 15:45 Temperature 98.3 F 98.2 F Pulse Rate [Pulse Oximeter] 65 64 64 Respiratory Rate 22 22 22 Blood Pressure [Le ft Arm] 130/70 132/70 Blood Pressure [Ri ght Arm] Pulse Oximetry 92 91 Oxygen Delivery Me thod Room Air Room Air 11/04/22 20:00 11/04/22 22:15 11/04/22 22:15 Temperature 97.6 F 98.5 F Pulse Rate [Pulse Oximeter] 73 66 66 Respiratory Rate 18 24 24 Blood Pressure [Le ft Arm] Blood Pressure [Ri ght Arm] 150/85 H 150/86 H Pulse Oximetry 92 93 Oxygen Delivery Me thod Room Air Room Air 11/05/22 03:00 11/05/22 07:52 11/05/22 07:52 Temperature 97.6 F 97.6 F Pulse Rate [Pulse Oximeter] 74 69 69 Respiratory Rate 16 24 24 Blood Pressure [Le ft Arm] Blood Pressure [Ri ght Arm] 157/89 H 166/83 H Pulse Oximetry 93 91 Oxygen Delivery Me thod Room Air Room Air DS: Data Data Completed and Pending Labs on day of discharge: Labs from last 24 hours 11/05/22 11/04/22 11/04/22 07:50 20:00 13:06 Sodium 137 135 137 Discharge Plan Discharge Disposition: Home, Self-Care Date of Admission: 11/03/22 18:25 Attending Provider on Discharge: Tomy Sellers Primary Care Provider: Sahara Morgan Condition: Improved Anticipated Discharge Date/Time: 11/05/22 12:00 Discharge Medications: Continued ibuprofen 200 mg capsule 200 mg PO Q6H PRN acetaminophen 500 mg capsule 500 mg PO Q6H PRN multivitamin [Daily Multi-Vitamin] Tablet 1 tab PO QAM ascorbic acid (vitamin C) 500 mg tablet 500 mg PO DAILY PRN cholecalciferol (vitamin D3) 25 mcg (1,000 unit) capsule 25 mcg PO QDAY PRN levothyroxine 50 mcg tablet 50 mcg PO QDAY Qty: 90 3RF Discharge Orders: Discharge Order (Routine); Ordered 11/05/22 Ordered By: Tomy Sellers Patient Education: Hyponatremia (DC) Additional Instructions: Check your BP at home once daily and bring readings to your followup appointment with Dr. Morgan. Activity Level: Activity as Tolerated Diet Detail: Resume previous home diet Follow Up Appointments: Sahara Morgan MD [Primary Care Provider] - (Post hospital follow up 5 days, check Serum Sodium levels in 5 days) Darren Saenz MD [Staff Physician] - 11/08/22 10:00 am (Primary wasn't available in the time frame appointment is with Dr. Saenz for 5 - days out. Need to have a follow up lab draw at this appoitment) Forms: [employer] Info Instructions
--- NOTE | 2022-11-05 10:04 | PC.NURSE ---
Discharge: Patient pleasant and cooperative. Patient vitally stable, lungs clear, BS WNL, IV removed, catheter intact. Patient denies pain, and independent. Patient tolerating regular diet. Patient urinating and had 1 BM today. Patient sigend belongings sheet and discharge form. Patient had no further question regarding discharge. Patient left the floor ambulating, with son, to home at 0959.
--- NOTE | 2022-11-06 16:08 | ED.NURSE ---
pt called medical records due to not having a ua resulted on her portal, as she was concerned that she had given a ua when she was a pt in the ed. chart was accessed and no order was found for a ua. she would like to have this done when she has a follow up. did transfer the call to [facility].
== END 2022-11-05 09:59 | disposition home or self-care (01) ==
LOC: ED 18:03 → MEDSURG 18:31
PROVIDERS: Hospitalist; Admitting Provider Family Medicine; Emergency Provider Family Medicine; PCP Internal Medicine; Visit Provider Family Medicine
DX: E87.1 Hypo-osmolality and hyponatremia (principal); R03.0 Elevated blood-pressure reading, without diagnosis of hypertension; D64.9 Anemia, unspecified; R26.81 Unsteadiness on feet; R26.89 Other abnormalities of gait and mobility; R42 Dizziness and giddiness; Z78.9 Other specified health status; E03.9 Hypothyroidism, unspecified; Z87.19 Personal history of other diseases of the digestive system; Z80.0 Family history of malignant neoplasm of digestive organs; Z98.49 Cataract extraction status, unspecified eye; Z20.822 Contact with and (suspected) exposure to COVID-19
CPT/HCPCS: 36415; 70551; 71046; 80048; 80053; 83735; 83880; 84295; 84443; 84484; 85025; 86140; 87635; 93005; 94761; 96360; 96361; 97161; 99285; A9270; G0378; J7030; J7070

== ENCOUNTER 2022-11-08 10:09 | Outpatient (CLI) | payer MEDICARE, BC, SELFPAY | END 2022-11-08 10:10 | disposition home or self-care (01) | PROVIDERS: PCP Internal Medicine; Visit Provider Internal Medicine | DX: E87.1 Hypo-osmolality and hyponatremia (principal); E03.9 Hypothyroidism, unspecified | CPT/HCPCS: 80048 ==

== ENCOUNTER 2023-07-19 09:52 | Outpatient (CLI) | payer MEDICARE, BC, SELFPAY | END 2023-07-19 09:53 | disposition home or self-care (01) | LOC: NFLDREF 10:09 | PROVIDERS: PCP Internal Medicine; Visit Provider Internal Medicine | DX: E03.9 Hypothyroidism, unspecified (principal) | CPT/HCPCS: 84443 ==

== ENCOUNTER 2023-10-21 08:19 | Outpatient (CLI) | payer MEDICARE, BC, SELFPAY | END 2023-10-21 08:20 | disposition home or self-care (01) | LOC: AMB 10-23 22:53 | PROVIDERS: PCP Internal Medicine; Visit Provider Emergency Medicine | DX: R60.9 Edema, unspecified (principal) | CPT/HCPCS: A0425; A0429 ==

== ENCOUNTER 2023-10-21 08:59 | Emergency (ER) | payer MEDICARE, BC, SELFPAY ==
[2023-10-21] VITALS (16 sets, daily range): BP systolic 142–164; BP diastolic 76–98; PULSE 63–90; RESP 11–40; TEMP 36.2; O2SAT 87–94; BMI 22.1
--- NOTE | 2023-10-21 09:05 | ED_ITS ---
HPI - Weakness General Time Seen by Provider: 09:05 Date Seen: 10/21/23 Chief complaint: Weakness Stated complaint: Weakness Time Seen by Provider: 10/21/23 09:06 Source: patient, EMS and RN notes reviewed Mode of arrival: EMS Limitations: no limitations History of Present Illness HPI Narrative: This patient is a 78-year-old female whom is brought in by a EMS for episode of shakiness at home. Patient got up this morning, had been up for about 2 hours, 8 healthy breakfast. Does have some low back pain issues, took a half Tylenol with her breakfast this morning. She was planning on being up and active today and she finds that helps her low back. She took the Tylenol preemptively. She took a shower and after the shower felt very shaky, she describes both of her hands and arms as shaking. She felt globally weak, had to sit down. There is maybe a sense of slight spinning but she describes it as not dangerously so. She felt lightheaded with this. No chest pain or shortness of breath, no abdominal symptoms with this. She has not felt sick prior to this. She had an episode hyponatremia last year and felt quite off, does not feel that way now. Her symptoms have resolved now. She called her son who told her to call the ambulance. Blood sugar with EMS was 166. She is living independent and does live alone. She did not actually faint to lose any consciousness. She did take a cup of cranberry juice while she called 911 and did feel better. She did not note any incoordination or inability to use her extremities. Had sense of global weakness like she had to sit down. Yesterday, patient notes with the poor rainy weather that she basically just sat inside all day. She did note some increased lower extremity edema with that which is not necessarily typical for her, left leg did seem to be worse than the right. There was no respiratory symptoms with this. The edema has resolved now today. MD Complaint: generalized weakness Related Data Home Medications ?Medication ?Instructions ?Recorded ?Confirmed multivitamin (Daily Multi-Vitamin 1 tab PO QAM 08/31/22 08/12/23 tablet) acetaminophen 500 mg capsule 500 mg PO Q6H PRN 10/10/22 08/12/23 ibuprofen 200 mg capsule 200 mg PO Q6H PRN 10/10/22 08/12/23 cholecalciferol (vitamin D3) 10 10 mcg PO QDAY 07/19/23 08/12/23 mcg (400 unit) capsule guaifenesin 600 mg tablet, 600 mg PO Q12H PRN 08/12/23 08/12/23 extended release 12 hr (Mucinex) Previous Rx's ?Medication ?Instructions ?Recorded levothyroxine 50 mcg tablet 50 mcg PO QDAY #90 tabs 07/19/23 Allergies Allergy/AdvReac Type Severity Reaction Status Date / Time Sulfa (Sulfonamide Allergy Severe Facial Verified 08/12/23 13:52 Antibiotics) swelling latex Allergy Verified 08/12/23 13:52 Review of Systems Status of ROS: Reports: 6 or more systems reviewed and unremarkable except as noted in History and below PFSH PFS Medical History Collagenous colitis ?K52.831 - Collagenous colitis (ICD-10) History of diverticulitis ?Z87.19 - Personal history of other diseases of the digestive system (ICD-10) Surgical History History of cataract surgery ?Z98.49 - Cataract extraction status, unspecified eye (ICD-10) Family History Sister Colon cancer Mother Pancreatic cancer Social History Narrative: Talia is a , has two adult sons (Ravin is in [place] and would be MDM if needed). She is a retired teacher. Nonsmoker, no ETOH. Requests DNR/DNI status. Health care directive on file- Health Care Directive completed on 09/04/2016. Scanned on 09/07/2016. Reviewed on 12/18/2019. What is your current living situation?: I presently have a place to live Problems where you live: no known problems Problems where you live details: none In the past 12 months, utilities in danger of being shut off: no In past 12 months, lack of transportation kept you from medical appts, meetings, work, or getting things needed for daily living: no In the past 12 mos, have been you worried that your food would run out before you had money to buy more?: never true In the past 12 mos, the food you bought just didn't last and you didn't have money to buy more?: never true Highest level of school completed/degree received: Master's degree Smoking Status: Never smoker Do you use any of these nicotine containing products: None Second hand tobacco smoke exposure: No How often do you have a drink containing alcohol: never How often do you have six or more drinks on one occasion: Never AUDIT-C Alcohol total score: 0 Non-prescribed substance use: denies use Caffeine: Yes (1 cup a day) How often does anyone, including family, friends and others, physically hurt you : never How often does anyone, including family, friends and others, insult or talk down to you: never How often does anyone, including family, friends and others, threaten you with harm: never How often does anyone, including family, friends and others, scream or curse at you: never Little interest or pleasure in doing things: not at all Feeling down, depressed, or hopeless: not at all service: No Exam Const: Vital Signs, click to edit/add: Vital Signs - 24 hr 10/21/23 08:59 10/21/23 08:59 10/21/23 09:03 Temperature 97.1 F L Pulse Rate 80 Pulse Rate [Pulse Oximeter] 83 90 Respiratory Rate 18 40 H Blood Pressure 151/98 H Blood Pressure [Ri ght Upper Arm] 151/98 H 151/98 H Pulse Oximetry 92 91 93 Oxygen Delivery Me thod Room Air Room Air 10/21/23 09:04 10/21/23 09:12 10/21/23 09:30 Temperature Pulse Rate 82 Pulse Rate [Pulse Oximeter] 80 Respiratory Rate 19 Blood Pressure Blood Pressure [Ri ght Upper Arm] 142/80 H Pulse Oximetry 92 94 91 Oxygen Delivery Me thod Room Air 10/21/23 09:30 10/21/23 09:32 10/21/23 09:40 Temperature Pulse Rate 82 75 Pulse Rate [Pulse Oximeter] 76 Respiratory Rate 16 Blood Pressure 142/80 H Blood Pressure [Ri ght Upper Arm] 144/91 H Pulse Oximetry 92 90 94 Oxygen Delivery Me thod Room Air 10/21/23 09:40 10/21/23 10:00 10/21/23 10:00 Temperature Pulse Rate 74 69 Pulse Rate [Pulse Oximeter] 68 Respiratory Rate 18 Blood Pressure 144/91 H Blood Pressure [Ri ght Upper Arm] 144/76 H Pulse Oximetry 93 90 90 Oxygen Delivery Me thod Room Air 10/21/23 10:02 10/21/23 10:30 10/21/23 10:30 Temperature Pulse Rate 69 66 Pulse Rate [Pulse Oximeter] 68 Respiratory Rate 11 L Blood Pressure 144/76 H Blood Pressure [Ri ght Upper Arm] 149/94 H Pulse Oximetry 90 93 92 Oxygen Delivery Me thod Room Air 10/21/23 10:32 10/21/23 11:00 10/21/23 11:02 Temperature Pulse Rate 68 63 69 Pulse Rate [Pulse Oximeter] Respiratory Rate Blood Pressure 149/94 H 158/85 H Blood Pressure [Ri ght Upper Arm] Pulse Oximetry 92 87 L 88 Oxygen Delivery Me thod 10/21/23 11:03 10/21/23 11:30 10/21/23 11:34 Temperature Pulse Rate 69 68 67 Pulse Rate [Pulse Oximeter] Respiratory Rate Blood Pressure 164/86 H Blood Pressure [Ri ght Upper Arm] Pulse Oximetry 92 91 93 Oxygen Delivery Me thod This 78-year-old female is alert, interactive, no apparent distress. She is very pleasant, able to speak in complete sentences. Voice is normal, no hoarseness. Pupils are equal round reactive, extraocular muscles intact, conjugate gaze, no nystagmus. Symmetrical facial function. Neck is supple, no adenopathy, no thyromegaly masses or nodules. Patient is able to sit up, lungs are clear, good air entry, no wheezing or crackles. CV regular rate and rhythm, no murmur, normal S1-S2, no S3 or S4 heard. Abdomen is soft, no rebound or guarding, no organomegaly. She is moving all of her extremities, exam is nonfocal, do appreciate normal symmetrical strength and sensation. Did not have patient ambulate at this point. Documenting provider has reviewed patient's vital signs: yes Course Course ED Course: This is a very pleasant 78-year-old female coming in with episode of shakiness and weakness that has resolved. This certainly does not sound neurologic as it most definitely is not leading to any focal deficits in the history. She is back to normal. We will have her on cardiac monitoring pulse oximetry. Could be arrhythmia on, atypical presentation of cardiac disease. Could be early harming her of infectious etiology. Will obtain portable chest x-ray and full complement of labs. Will get EKG. Consider electrolyte abnormalities as well as patient has had hyponatremia before. Reevaluation(s) Time of Reevaluation #1: 09:49 Reevaluation #1: Was at nurses desk an saw pulse oximetry with good waveform of 90% on Talia. Nursing staff subsequently told me that when EMS got to her, O2 sats were 89- 90%, oxygen was applied. Patient did note that she actually felt better with the oxygen on per report. Will add on a venous blood gas if possible, D-dimer and proBNP. Time of Reevaluation #2: 11:25 Reevaluation #2: Reviewed that her labs are not showing any reasonable explanation for her symptoms. She is not had recurrent tremors. She actually is feeling fine. She believes this spell happened a little bit before 8:00 a.m. at home. Thus, we can draw her 3 hour troponin now and if that remains normal, can discharge to home for further outpatient follow-up. She states her son drove down and is at her town house right now, she is happy about this as she will not be there alone. She does feel comfortable going home if her subsequent troponin is normal. Vital Signs Vital signs: Initial Vital Signs Temperature 97.1 F L 10/21/23 08:59 Temperature Source Temporal Artery Scan 10/21/23 08:59 Pulse Rate 83 10/21/23 08:59 Pulse Rhythm Regular 10/21/23 08:59 Respiratory Rate 18 10/21/23 08:59 Respiratory Effort Normal, Spontaneous, Non-Labored 10/21/23 08:59 Respiratory Depth Normal 10/21/23 08:59 Respiratory Pattern Normal 10/21/23 08:59 Blood Pressure 151/98 H 10/21/23 08:59 Blood Pressure Mean 115 H 10/21/23 08:59 Blood Pressure Position Supine 10/21/23 08:59 Pulse Oximetry 92 10/21/23 08:59 Oxygen Delivery Method Room Air 10/21/23 08:59 Vital Signs Temperature 97.1 F L 10/21/23 08:59 Pulse Rate 83 10/21/23 08:59 Respiratory Rate 18 10/21/23 08:59 Blood Pressure 151/98 H 10/21/23 08:59 Pulse Oximetry 92 10/21/23 08:59 Oxygen Delivery Method Room Air 10/21/23 08:59 Temperature 97.1 F L 10/21/23 08:59 Pulse Rate 67 10/21/23 11:34 Respiratory Rate 11 L 10/21/23 10:30 Blood Pressure 164/86 H 10/21/23 11:34 Pulse Oximetry 93 10/21/23 11:34 Oxygen Delivery Method Room Air 10/21/23 10:30 MDM - Weakness Lab Data Attestation: I reviewed the patient's lab results. Labs: Lab Results 10/21/23 10/21/23 10/21/23 Range/Units 09:15 09:49 09:50 WBC 7.60 (4.50-11.00) K/uL RBC 4.30 (4.00-5.20) m/uL Hgb 12.2 (12.0-16.0) gm/dL Hct 37.8 (33.0-51.0) % MCV 88 (80-100) fL MCH 28 (26-34) pg MCHC 32 (32-36) gm/dL RDW Coeff of Yan 13.4 (11.5-15.5) % Plt Count 186 (140-440) K/uL Neut % (Auto) 77.4 H (42.0-72.0) % Lymph % (Auto) 14.5 L (20-44) % Dorado % (Auto) 6.8 (0.0-11.0) % Eos % (Auto) 0.9 (0.0-7.0) % Baso % (Auto) 0.4 (0.0-3.0) % Neut # (Auto) 5.90 (1.7-7.0) K/uL Lymph # (Auto) 1.10 (0.90-2.90) K/uL Dorado # (Auto) 0.50 (0.00-0.90) K/UL Eos # (Auto) 0.07 (0.00-0.50) K/uL Baso # (Auto) 0.03 (0.00-0.30) K/uL Abs Immat Gran (auto) 0.00 (0.00-0.30) K/uL Imm/Tot Granulo (auto) 0.0 % D-Dimer Quant (PE/DVT) 0.37 (0.00-0.50) ug/ml VBG pH 7.39 (7.32-7.43) VBG pCO2 44 (40-50) mmHG VBG pO2 43.3 (25-47) mmHG VBG HCO3 27 (21-28) mmol/L Sodium 133 L (135-149) mmol/L Potassium 4.4 (3.6-5.1) mmol/L Chloride 100 (96-114) mmol/L Carbon Dioxide 26 (20-32) mmol/L Anion Gap 7 (7-15) mEq/L BUN 33 H (7-30) mg/dL Creatinine 0.9 (0.5-1.5) mg/dL Estimated Creat Clear 37.74 Estimated GFR 65 ml/min Glucose 129 H (60-115) mg/dL Lactate 1.3 (0.5-1.9) mmol/L Calcium 9.1 (8.4-10.6) mg/dL Total Bilirubin 0.8 (0.1-1.5) mg/dL AST 41 H (12-35) U/L ALT 27 (4-35) U/L Alkaline Phosphatase 69 (40-150) U/L Troponin I < 0.01 L (0.01-0.04) ng/mL C-Reactive Protein < 0.5 L (0.5-1.0) mg/dL NT-Pro-B Natriuret Pep 52 pg/mL Total Protein 7.7 (6.0-8.3) g/dL Albumin 4.6 (3.3-5.0) g/dL Lab Acknowledgement Test Added Test Added POC Troponin I 0.01 (0.01-0.04) ng/ml 10/21/23 Range/Units 11:33 WBC (4.50-11.00) K/uL RBC (4.00-5.20) m/uL Hgb (12.0-16.0) gm/dL Hct (33.0-51.0) % MCV (80-100) fL MCH (26-34) pg MCHC (32-36) gm/dL RDW Coeff of Yan (11.5-15.5) % Plt Count (140-440) K/uL Neut % (Auto) (42.0-72.0) % Lymph % (Auto) (20-44) % Dorado % (Auto) (0.0-11.0) % Eos % (Auto) (0.0-7.0) % Baso % (Auto) (0.0-3.0) % Neut # (Auto) (1.7-7.0) K/uL Lymph # (Auto) (0.90-2.90) K/uL Dorado # (Auto) (0.00-0.90) K/UL Eos # (Auto) (0.00-0.50) K/uL Baso # (Auto) (0.00-0.30) K/uL Abs Immat Gran (auto) (0.00-0.30) K/uL Imm/Tot Granulo (auto) % D-Dimer Quant (PE/DVT) (0.00-0.50) ug/ml VBG pH (7.32-7.43) VBG pCO2 (40-50) mmHG VBG pO2 (25-47) mmHG VBG HCO3 (21-28) mmol/L Sodium (135-149) mmol/L Potassium (3.6-5.1) mmol/L Chloride (96-114) mmol/L Carbon Dioxide (20-32) mmol/L Anion Gap (7-15) mEq/L BUN (7-30) mg/dL Creatinine (0.5-1.5) mg/dL Estimated Creat Clear Estimated GFR ml/min Glucose (60-115) mg/dL Lactate (0.5-1.9) mmol/L Calcium (8.4-10.6) mg/dL Total Bilirubin (0.1-1.5) mg/dL AST (12-35) U/L ALT (4-35) U/L Alkaline Phosphatase (40-150) U/L Troponin I (0.01-0.04) ng/mL C-Reactive Protein (0.5-1.0) mg/dL NT-Pro-B Natriuret Pep pg/mL Total Protein (6.0-8.3) g/dL Albumin (3.3-5.0) g/dL Lab Acknowledgement POC Troponin I 0.01 (0.01-0.04) ng/ml Imaging Data Chest x-ray: Attestation: I have reviewed the pertinent imaging results. My impression: Did visualize this portable film, do not appreciate any infiltrate, no congestive changes. Radiologist's impression: Patient: TALIA LAGOS Facility:?[facility] Patient ID:?[id number] Site Patient ID:?[id number]. Site :?[id number] Study:?XRay-Chest PORTABLE-10/21/2023 9:30:10 AM Ordering Physician:?Radha Christopher Final Report: INDICATION: Weakness TECHNIQUE: 1 view chest radiograph COMPARISON: None. FINDINGS: Devices: None. Lung volumes are good. No focal or diffuse opacities. No pleural effusion. No pneumothorax. Heart size is normal. IMPRESSION: Lungs clear. No acute findings. Dictated by Romelia Chapa MD @ 10/21/2023 9:41:15 AM (Electronic Signature) ECG Data Attestation: I personally reviewed and interpreted this ECG as follows: (Sinus rhythm with premature atrial contraction, 80 beats per minute. Poor R-wave progression anterior precordial leads.) ECG interpretation date: 10/21/23 ECG interpretation time: 09:37 Prior ECG tracings: available for review (Similar to EKG from 2022 but T-waves are upright in V1 and V2, were flipped on prior EKG.) Discharge Plan Discharge Clinical Impression: Episode of shaking, Weakness Patient Disposition: Home, Self-Care Condition: Stable Instructions: Weakness (ED), Tremors (ED) Additional Instructions: Make sure that you have adequate fluid and oral intake of food. Be careful to not over drink free water as that can lower your sodium, that has happened twice before. Need to schedule a clinic follow-up with your primary care provider within the next week. If you develop further episodes like this, have new concerns, do recommend re-evaluation in the interim. Activity Level: Activity as Tolerated Prescriptions: No Action ibuprofen 200 mg capsule 200 mg PO Q6H PRN acetaminophen 500 mg capsule 500 mg PO Q6H PRN guaifenesin [Mucinex] 600 mg tablet extended release 12hr 600 mg PO Q12H PRN multivitamin [Daily Multi-Vitamin] Tablet 1 tab PO QAM cholecalciferol (vitamin D3) 10 mcg (400 unit) capsule 10 mcg PO QDAY Rx Instructions: Pt takes in the winter. levothyroxine 50 mcg tablet 50 mcg PO QDAY Qty: 90 3RF Follow Up/Referrals: Sahara Morgan MD [Primary Care Provider] - Stand Alone Forms: Sunglass Info Instructions
--- NOTE | 2023-10-21 09:12 | CRLHL7_ITS ---
For Patients: As a result of the Century Cures Act, medical imaging exams and procedure reports are released immediately into your electronic medical record. You may view this report before your referring provider. If you have questions, please contact your health care provider. INDICATION: Weakness TECHNIQUE: 1 view chest radiograph COMPARISON: None. FINDINGS: Devices: None. Lung volumes are good. No focal or diffuse opacities. No pleural effusion. No pneumothorax. Heart size is normal. IMPRESSION: Lungs clear. No acute findings. Dictated by Romelia Chapa MD @ 10/21/2023 9:41:15 AM (Electronically Signed)
[2023-10-21 09:29] LABS: Troponin, Point-of-Care* 0.01 ng/ml (0.01-0.04)
[2023-10-21 09:37] LABS: Lactate* 1.3 mmol/L (0.5-1.9)
[2023-10-21 09:39] LABS: Basophils Absolute Auto 0.03 K/uL (0.00-0.30); Basophils Percent Auto 0.4 % (0.0-3.0); Eosinophils Absolute Auto 0.07 K/uL (0.00-0.50); Eosinophils Percent Auto 0.9 % (0.0-7.0); Hematocrit 37.8 % (33.0-51.0); Hemoglobin* 12.2 gm/dL (12.0-16.0); Lymphocytes Percent Auto 14.5 % (20-44); Mean Corpuscular HGB Conc 32 gm/dL (32-36); Mean Corpuscular Hemoglobin 28 pg (26-34); Mean Corpuscular Volume 88 fL (80-100); Monocytes Percent Auto 6.8 % (0.0-11.0); Neutrophils Percent Auto 77.4 % (42.0-72.0); Platelet Count* 186 K/uL (140-440); RDW Coefficient of Variation % 13.4 % (11.5-15.5)
[2023-10-21 09:44] LABS: Slide Review Reflex No
[2023-10-21 09:53] LABS: Albumin* 4.6 g/dL (3.3-5.0); Chloride* 100 mmol/L (96-114); Potassium* 4.4 mmol/L (3.6-5.1); Sodium* 133 mmol/L (135-149)
[2023-10-21 09:56] LABS: Alanine Aminotransferase* 27 U/L (4-35); Alkaline Phosphatase* 69 U/L (40-150); Anion Gap 7 mEq/L (7-15); Aspartate Amino Transferase* 41 U/L (12-35); Bilirubin Total* 0.8 mg/dL (0.1-1.5); Blood Urea Nitrogen* 33 mg/dL (7-30); Carbon Dioxide* 26 mmol/L (20-32); Creatinine* 0.9 mg/dL (0.5-1.5); Est. Creatinine Clearance* 37.74; Estimated Glomerular Filt Rate 65 ml/min; Total Protein* 7.7 g/dL (6.0-8.3)
[2023-10-21 09:57] LABS: Calcium* 9.1 mg/dL (8.4-10.6); Glucose* 129 mg/dL (60-115)
[2023-10-21 10:05] LABS: HCO3 VBG 27 mmol/L (21-28); PCO2 VBG 44 mmHG (40-50); PO2 VBG 43.3 mmHG (25-47); pH VBG 7.39 (7.32-7.43)
[2023-10-21 10:11] LABS: C Reactive Protein* < 0.5 mg/dL (0.5-1.0); Troponin I* < 0.01 ng/mL (0.01-0.04)
[2023-10-21 10:18] LABS: D Dimer Quantitative* 0.37 ug/ml (0.00-0.50)
[2023-10-21 10:33] LABS: NT Pro B Type NatriureticPept* 52 pg/mL
[2023-10-21 11:47] LABS: Troponin, Point-of-Care* 0.01 ng/ml (0.01-0.04)
== END 2023-10-21 12:01 | disposition home or self-care (01) ==
PROVIDERS: Emergency Provider Family Medicine; PCP Internal Medicine
DX: R53.1 Weakness (principal); R25.1 Tremor, unspecified
CPT/HCPCS: 36415; 71045; 80053; 82803; 83605; 83880; 84484; 85025; 85379; 86140; 93005; 94761; 99284; 99285

== ENCOUNTER 2023-11-13 14:49 | Outpatient (CLI) | payer MEDICARE, BC, SELFPAY ==
--- NOTE | 2023-11-13 15:20 | CRLHL7_ITS ---
For Patients: As a result of the Cures Act, medical imaging exams and procedure reports are released immediately into your electronic medical record. You may view this report before your referring provider. If you have questions, please contact your health care provider. BILATERAL SCREENING MAMMOGRAM WITH COMPUTER-AIDED DETECTION AND TOMOSYNTHESIS TECHNIQUE: CC and MLO views were obtained. These mammographic images have been obtained using full-field digital technique. These mammographic images were interpreted with the benefit of computer-aided detection. Breast Tomosynthesis was used in this interpretation. COMPARISON FILM: 10/03/22, 02/24/20, 10/24/18. FINDINGS: The breasts are heterogeneously dense, which may obscure small masses IMPRESSION: There is no radiographic evidence for malignancy. ASSESSMENT: BI-RADS Category 2: Benign RECOMMENDATION: Routine screening mammogram in 1 year. A lay language report of this examination will be provided to the patient. OSMAN ARELLANO M.D. Diagnostic/Nuclear Medicine Radiologist [email or web address] SILVA:[email or web address] Transcribed: 1:48 p.mJackson espino/Dictated by: Osman Arellano MD @ 11/15/2023 10:00:00 AM (Electronically Signed)
== END 2023-11-13 14:50 | disposition home or self-care (01) ==
LOC: MAMMO 14:51
PROVIDERS: PCP Internal Medicine; Visit Provider Internal Medicine
DX: Z12.31 Encounter for screening mammogram for malignant neoplasm of breast (principal); R92.2 Inconclusive mammogram
CPT/HCPCS: 77063; 77067

== ENCOUNTER 2023-11-15 13:23 | Outpatient (CLI) | payer MEDICARE, BC, SELFPAY | END 2023-11-15 13:24 | disposition home or self-care (01) | PROVIDERS: PCP Internal Medicine; Visit Provider Internal Medicine | DX: R53.83 Other fatigue (principal); R53.81 Other malaise | CPT/HCPCS: 80053; 82607; 84443 ==

== ENCOUNTER 2023-11-23 08:43 | Outpatient (CLI) | payer MEDICARE, BC, SELFPAY | END 2023-11-23 08:44 | disposition home or self-care (01) | LOC: RAD 08:45 | PROVIDERS: PCP Internal Medicine; Visit Provider Internal Medicine | DX: R06.09 Other forms of dyspnea (principal); I34.0 Nonrheumatic mitral (valve) insufficiency | CPT/HCPCS: 93306 ==

== ENCOUNTER 2024-06-27 09:15 | Outpatient (RCR) | payer MEDICARE, BC, SELFPAY ==
--- NOTE | 2024-06-02 14:47 | PT.OPEX ---
PT [facility] Outpatient Eval PT [facility] Outpatient Eval Start: 06/02/24 07:33 Freq: Status: Active Protocol: Document 06/02/24 08:35 CRP (Rec: 06/02/24 13:57 CRP [id number]) E-signed By Frank Stout PT Physical Therapy Outpatient Evaluation Insurance Information Recert Due Date 08/31/24 Insurance Name Medicare B Medical Diagnosis Sciatica Referring MD Dr Gutierrez Subjective Subjective Has had a hx of gluteal pain and pain down the L hamstring. Dating back to 2005 was first episode that she needed extensive treatment which included injections. 2 days after Nayely she began having L PSIS region pinching pain. Has been severe but prednisone did help. Standing against a wall was helpful. Now her pain is less intense overall. Is also having pulling pain into the L calf. Still has her historical pain which is gluteal muscles down the back of the L thigh. New sxs are the SI region pinching pain and calf sxs. Pain gets worse as the day progresses. Does have tingling into the L toes. Ice does help. When painful it is a constant pain. No past surgeries Pain Comments -12/14 Current Work Status Retired Objective Other/Pertinent Objective L post rot SI Trunk ROM: flex moderate decrease. Ext Min dec, R SB mod dec with L sided pain, L SB min dec, Bilat rotation min decrease Hip ROM: Unable to test secondary to L sided LBP Functional positioning: Sit <> supine restricted with pain. Unable to be in supine or side lying position. MMT - unable secondary to pain SI correction in sitting - decreased pain noted Functional Test Performed & Score Oswestry 30 Assessment Assessment/Impression Pt presents to the clinic with L sided low back pain and radiating pain into the L LE. Pts signs and sxs are consistent with dominant nociceptive lumbar spine pain with L LE sxs that appear neuropathic in nature. Skilled PT is necessary to incorporate ther ex, nm mookie, manual therapy and pt education to decrease pain and improve functional mobility. Primary Functional Limitations Standing Walking Bending Lifting Sitting Exercise Plan of Care Rehabilitation Potential Good Physical Therapy Goals 1. Pt will be independent with HEP in 8 weeks. 2. Pt will complete self cares with 75% decrease in pain in 10 weeks. 3. 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 Coordination/Communication With Referral Source Treatment Plan/Direct Interventions Joint Mobilization,Manual Therapy,Neuromuscular Re-ed, Self-Care/Home Management, Therapeutic Activities, Therapeutic Exercises Frequency/Duration 1-2x/wk for 12 weeks Patient Will Be Discharged From Therapy Completion of LTG(s),Skills Plateau,Independent w/HEP, Independently Progressing Evaluation Billing Untimed Code Treatment Minutes 40 Complexity Moderate Certification Information Initial Certification Date 06/02/24 Ending Certification Date 08/31/24 Provider Signature Required Yes Provider Signature Shows Agreement With POC & Medical Necessity Physician NPI Number Write NPI# Here Physician Comment/Change : Physician Signature & Date Requested Please Sign/Date Here
== END 2024-10-15 15:33 | disposition home or self-care (01) ==
PROVIDERS: PCP Internal Medicine
DX: M54.42 Lumbago with sciatica, left side (principal); G89.29 Other chronic pain; Z51.89 Encounter for other specified aftercare
CPT/HCPCS: 97110; 97116; 97140; 97162

== ENCOUNTER 2024-08-11 10:07 | Outpatient (CLI) | payer MEDICARE, BC, SELFPAY | END 2024-08-11 10:08 | disposition home or self-care (01) | LOC: NFLDREF 08-15 08:02 | PROVIDERS: PCP Internal Medicine; Referring Provider Internal Medicine; Visit Provider Internal Medicine | DX: E03.9 Hypothyroidism, unspecified (principal) | CPT/HCPCS: 84443 ==

== ENCOUNTER 2024-08-14 10:52 | Outpatient (CLI) | payer MEDICARE, BC, SELFPAY | END 2024-08-14 10:53 | disposition home or self-care (01) | LOC: NFLDREF 10:58 | PROVIDERS: PCP Internal Medicine; Visit Provider Internal Medicine | DX: R06.09 Other forms of dyspnea (principal); E03.9 Hypothyroidism, unspecified | CPT/HCPCS: 80053 ==

== ENCOUNTER 2024-08-27 12:52 | Outpatient (CLI) | payer MEDICARE, BC, SELFPAY | END 2024-08-27 12:53 | disposition home or self-care (01) | LOC: RAD 12:52 | PROVIDERS: PCP Internal Medicine; Visit Provider Internal Medicine | DX: R06.09 Other forms of dyspnea (principal); I34.0 Nonrheumatic mitral (valve) insufficiency | CPT/HCPCS: 93306 ==

== ENCOUNTER 2024-12-04 10:34 | Outpatient (CLI) | payer MEDICARE, BC, SELFPAY ==
--- NOTE | 2024-12-04 10:45 | CRLHL7_ITS ---
For Patients: As a result of the Century Cures Act, medical imaging exams and procedure reports are released immediately into your electronic medical record. You may view this report before your referring provider. If you have questions, please contact your health care provider. INDICATION: BILATERAL SCREENING MAMMOGRAM, ASYMPTOMATIC 79 Y/O FEMALE COMPARISON: 11/13/2023, 10/03/2022, 02/24/2020 TECHNIQUE: Digital mammogram in CC and MLO projections including computer-aided detection (CAD) and tomosynthesis. BREAST COMPOSITION: The breasts are heterogeneously dense, which may obscure small masses. FINDINGS: No suspicious findings. ASSESSMENT: BI-RADS 1 Negative RECOMMENDATION: Annual screening mammogram. A lay language report of this examination will be provided to the patient. Dictated by: Kristel San MD @ 12/07/2024 19:11:43 (Electronically Signed)
== END 2024-12-04 10:35 | disposition home or self-care (01) ==
LOC: MAMMO 10:35
PROVIDERS: PCP Internal Medicine; Visit Provider Internal Medicine
DX: Z12.31 Encounter for screening mammogram for malignant neoplasm of breast (principal); R92.333 Mammographic heterogeneous density, bilateral breasts
CPT/HCPCS: 77063; 77067